=== PATIENT | male | born 1935 | race African-American/Black ===

== ENCOUNTER 2017-04-09 19:20 | Inpatient (IN) ==
[2017-04-09 20:32] LABS: Basophils % 0.2 % (0.0-0.8); Eosinophils # 0.2 10*3/uL (0.0-0.87); Hematocrit 24.8 VOL% (42.0-52.0); Hemoglobin 8.5 GM/DL (14.0-18.0); Immature Granulocytes % 0.4 %; Immature Granulocytes Absolute 0.04 #; Lymphocytes # 1.7 10*3/uL (1.4-4.0); Lymphocytes % 16.7 % (21.2-54.2); Mean Corpuscular HGB Conc 34.3 GM/DL (32-36); Mean Corpuscular Hemoglobin 32 PG (27-34); Mean Corpuscular Volume 92.2 FL (87-102); Mean Platelet Volume 12.4 FL (9.6-12.0); Monocytes # 0.2 10*3/uL (0.11-0.8); Monocytes % 2.2 % (1.7-12.7); Neutrophils % 78.5 % (38.7-73.9); Platelet Count 113 T/CUMM (130-400); Red Blood Count 2.69 MC/CUMM (3.8-5.5); Red Cell Distribution Width 14.5 % (9.3-17.3); White Blood Count 10.2 T/CUMM (4-12)
--- NOTE | 2017-04-09 20:49 | Emergency Department Note ---
Yannick Phillips Hilary, am scribing for, and in the presence of, Christiano Jimenez MD 20:22. Tony Phillips Robert M, MD, personally performed the services described in this documentation, ascribed by Any Lanier in my presence, and it is both accurate and complete . Arrival - Arrival Chief Complaint: Altered Mental Status Stated Complaint: CANT WALK/STAND/UNABLE URINATE/EXTREMITIES [facility] ED Nursing Triage Note: pt presented to triage via w/c with family reporting confusion and weakness and unable to urinate x 2 days. pt alert and oriented to self only. family reports fever x 2 days. Mode of Arrival: Wheelchair Limitations: No Limitations Source: Patient, RN Notes Reviewed - History of Present Illness HPI Narrative: Pt is a 81 y/o male presenting to the ED with c/o confusion and weakness which onset 2 days ago. Pts family report confusion, weakness, trouble standing, " hands and feet jumping" and numbness in his feet but denies fever. Family also reports that he self caths due to a prostate issue and that he hasn't urinated in 2 days. No other complaints or problems stated in the ED. Onset (ago): day(s) Consistency: constant Severity: mild Severity scale (1-10): 1 Allergies/Adverse Reactions: Allergies Allergy/AdvReac Type Severity Reaction Status Date / Time No Known Allergies Allergy Verified 01/02/16 01:06 Home Medications: Home Medications Medication Instructions Recorded Confirmed Type Albuterol Sulfate [Ventolin HFA] 2 puff INH PRN PRN 06/28/15 04/09/17 History Amitriptyline [Elavil] 50 mg PO BEDTIME 06/28/15 04/09/17 History Ascorbic Acid [Vitamin C] 500 mg PO DAILY 06/28/15 04/09/17 History Aspirin EC Tab 81 mg PO DAILY 04/09/17 04/09/17 History Etodolac 400 mg PO BID 04/09/17 04/09/17 History Folic Acid Tab 1 mg PO DAILY 04/09/17 04/09/17 History Furosemide Tab [Lasix Tab] 20 mg PO DAILY 04/09/17 04/09/17 History Gabapentin 400 mg PO BID 04/09/17 04/09/17 History Methocarbamol Tab [Robaxin Tab] 500 mg PO TID 04/09/17 04/09/17 History Methotrexate Tab 15 mg PO MO 04/09/17 04/09/17 History Valsartan/Hydrochlorothiazide 1 each PO DAILY 04/09/17 04/09/17 History [Valsartan-Hctz 160-25 mg Tab] fentaNYL [Fentanyl 50 mcg/hr Patch] 1 patch TRANSDERM Q3DAY 04/09/17 04/09/17 History rOPINIRole [Requip] 0.25 mg PO BEDTIME 04/09/17 04/09/17 History traMADol TAB [Ultram] 50 mg PO TID 04/09/17 04/09/17 History Review of System - Review of System 12 point system: reviewed and no additional remarkable complaints except as stated - Review of System Constitutional: Present: fever, weakness, other (confusion) Genitourinary male: Present: other (trouble urinating) Musculoskeletal: Present: leg pain (numbness in feet/ cant stand) Neurological: Present: weakness, confusion Medical,Surgical,& Family Hx - Medical History Cardio: History of: Hypertension Neurology: History of: Vertigo HEENT: History of: Eye Problem Respiratory: History of: Obstructive Sleep Apnea Genitourinary: History of: Prostate Problems (hx of prostate cancer 2003 with radiation) Musculoskeletal: History of: Back/Neck Problems - Surgical History Cardiac Surgeries: Patient Denies: Cardiac Catheterization Thoracic Surgeries: Patient denies;: Lobectomy HEENT Surgeries: Surgical HX of: Eye Surgery (cataract sx) Orthopedic Surgeries: Surgical HX of;: Implanted Devices (stimulator 06/28/2015) , Total Knee Replacement (right TKR, Left TKR) - Social History Smoking Status: Current every day smoker Frequency of Alcohol Use: Occasionally Type of Drug Use: None Exam Vital Signs: Vital Signs Temperature 99.4 F 04/09/17 21:06 Pulse Rate 102 H 04/09/17 21:06 Respiratory Rate 18 04/09/17 21:06 Blood Pressure 88/47 04/09/17 21:06 O2 Sat by Pulse Oximetry 98 04/09/17 19:37 - General General appearance: alert, in no apparent distress, other (generalized weakness) - Head Head exam: Present: atraumatic, normocephalic - Eye Eye exam: Present: normal appearance, PERRL, EOMI - ENT ENT exam: Present: mucous membranes dry, TM's normal bilaterally. Absent: mucous membranes moist - Neck Neck exam: Present: full ROM, trachea midline. Absent: tenderness - Chest Chest inspection: Present: symmetric chest wall rise. Absent: tenderness - Respiratory Respiratory exam: Present: normal lung sounds bilaterally. Absent: respiratory distress - Cardiovascular Cardiovascular exam: Present: regular rate, normal rhythm, normal heart sounds. Absent: murmur, rubs, gallop - Abdominal Exam Abdominal exam: Present: soft, normal bowel sounds. Absent: distention, tenderness - Extremities Exam Extremities exam: Present: full ROM, other (left leg is altered to proprioception). Absent: tenderness - Back Exam Back exam: Present: full ROM. Absent: tenderness - Neurological Exam Neurological exam: Present: alert, oriented X3, CN II-XII intact. Absent: motor sensory deficit - Psychiatric Psychiatric exam: Present: normal affect, normal mood - Skin Skin exam: Present: warm, dry, intact, normal color. Absent: rash Course - Consultations Time: 22:05 Results - Labs CBC & BMP: 04/09/17 20:02 Lab Results: I have reviewed the patients labs - Diagnostic Findings Procedure: CT: image reviewed by me (No acute intracranial process. Minimal ethmoid sinus disease.)
[2017-04-09 20:55] LABS: Troponin I Only 0.025 NG/ML (0.00-0.045)
[2017-04-09 21:54] LABS: Platelet Estimate Normal
[2017-04-09 22:18] LABS: Calcium 9.5 MG/DL (8.5-10.1); Magnesium 2.3 MG/DL (1.8-2.4); Osmolality,Calculated 289.5 MOS/KG (273-304); Potassium 3.4 MMOL/L (3.5-5.1)
[2017-04-09] MEDS ORDERED: SODIUM CHLORIDE 0.9% 250 ML IV PRN (22:22)
--- NOTE | 2017-04-10 01:20 | Hospitalist History & Physical ---
Assessment and Plan (1) Cellulitis Status: Acute Current Visit: Yes (2) Global weakness Status: Acute Current Visit: Yes (3) Decreased sensation of foot Status: Acute Current Visit: Yes (4) Acute kidney injury Status: Acute Current Visit: Yes (5) Urinary retention Status: Acute Current Visit: Yes (6) Dehydration Status: Acute Current Visit: Yes (7) Anemia Status: Acute Assessment and plan: Our plan for this patient 1. Admit patient our service 2. Monitored bed 3. Transfuse 2 units packed red blood cells 4. Anemia profile 5. Renal ultrasound 6. Urology consult 7. Nephrology consult 8. As Dr. Schmidt to see the patient while he is here secondary to this jerking motions noted in arms and legs Current Visit: Yes History of Present Illness Chief complaint: Cannot urinate and confusion History of present illness: Mr. Mederos is a 81 year old male with past medical history significant for prostate cancer, hypertension, some nerve pain, chronic back pain, chronic kidney disease who presents to our ER tonight. It starts at that patient could not urinate. He had no urge to urinate. Family reports he has not urinated in 2 days. He has been experiencing increased weakness and increased confusion. He has not been able to walk. He had diarrhea and vomiting all day Friday and all day Friday. There was no blood seen in the vomitus or the diarrhea. Patient's been has been having jerking motions in both his hands and legs. He has been seeing Dr. Marvin Kramer for this problem. Patient was brought up to our hospital for further evaluation. Patient was found to be anemic. Patient was found to have increased creatinine. I was consulted to admit him through the emergency room. Home Medications Medication Instructions Recorded Confirmed Type Albuterol Sulfate [Ventolin HFA] 2 puff INH PRN PRN 06/28/15 04/09/17 History Amitriptyline [Elavil] 50 mg PO BEDTIME 06/28/15 04/09/17 History Ascorbic Acid [Vitamin C] 500 mg PO DAILY 06/28/15 04/09/17 History Aspirin EC Tab 81 mg PO DAILY 04/09/17 04/09/17 History Etodolac 400 mg PO BID 04/09/17 04/09/17 History Folic Acid Tab 1 mg PO DAILY 04/09/17 04/09/17 History Furosemide Tab [Lasix Tab] 20 mg PO DAILY 04/09/17 04/09/17 History Gabapentin 400 mg PO BID 04/09/17 04/09/17 History Methocarbamol Tab [Robaxin Tab] 500 mg PO TID 04/09/17 04/09/17 History Methotrexate Tab 15 mg PO MO 04/09/17 04/09/17 History Valsartan/Hydrochlorothiazide 1 each PO DAILY 04/09/17 04/09/17 History [Valsartan-Hctz 160-25 mg Tab] fentaNYL [Fentanyl 50 mcg/hr Patch] 1 patch TRANSDERM Q3DAY 04/09/17 04/09/17 History rOPINIRole [Requip] 0.25 mg PO BEDTIME 04/09/17 04/09/17 History traMADol TAB [Ultram] 50 mg PO TID 04/09/17 04/09/17 History Allergies Allergy/AdvReac Type Severity Reaction Status Date / Time No Known Allergies Allergy Verified 01/02/16 01:06 Medical,Surgical,& Family Hx - Medical History Cardio: History of: Hypertension Neurology: History of: Vertigo HEENT: History of: Eye Problem Respiratory: History of: Obstructive Sleep Apnea Genitourinary: History of: Prostate Problems (hx of prostate cancer 2003 with radiation) Musculoskeletal: History of: Back/Neck Problems - Surgical History Cardiac Surgeries: Patient Denies: Cardiac Catheterization Thoracic Surgeries: Patient denies;: Lobectomy HEENT Surgeries: Surgical HX of: Eye Surgery (cataract sx) Orthopedic Surgeries: Surgical HX of;: Implanted Devices (stimulator 06/28/2015) , Total Knee Replacement (right TKR, Left TKR) - Family History Family History: Reports;: Family Hypertension - Social History Smoking Status: Current every day smoker Frequency of Alcohol Use: Occasionally Type of Drug Use: None 12 point system: reviewed and no additional remarkable complaints except as stated Exam - Constitutional Vitals: Period Temp Pulse Resp BP Sys/Acuña Pulse Ox Last 24 Hr 99.4 F-99.4 F 102-102 18-18 88-88/47-47 98 - General General appearance: alert, in no apparent distress, mild confusion and overall generalized weakness - Head Head exam: Present: atraumatic, normocephalic - Eye Eye exam: Present: normal appearance, PERRL, EOMI - ENT ENT exam: Present: mucous membranes dry, TM's normal bilaterally. - Neck Neck exam: Present: full ROM, trachea midline. - Chest Chest inspection: Present: symmetric chest wall rise. - Respiratory Respiratory exam: Present: normal lung sounds bilaterally. - Cardiovascular Cardiovascular exam: Present: regular rate, normal rhythm, normal heart sounds - Abdominal Exam Abdominal exam: Present: soft, normal bowel sounds. Absent: distention, tenderness - Extremities Exam Extremities exam: Present: Patient has decreased sensation regarding his toes and feet has some area of cellulitis on his left lower leg - Back Exam Back exam: Present: full ROM. Absent: tenderness - Neurological Exam Neurological exam: Present: alert, oriented X3, CN II-XII intact. - Psychiatric Psychiatric exam: Present: normal affect, normal mood - Skin Skin exam: Present: warm, dry, intact, normal color. Absent: rash Results - Labs CBC & BMP: 04/09/17 20:02 04/09/17 20:02
[2017-04-10] MEDS ORDERED: ACETAMINOPHEN 325 MG TABLET PO PRN (01:27)
[2017-04-10] MEDS ORDERED: ONDANSETRON 4 MG/2 ML VIAL IV PRN (01:27)
[2017-04-10] MEDS ORDERED: SODIUM CHLORIDE 0.9% 250 ML IV PRN (01:33)
[2017-04-10 03:45] LABS: Apearance,Urine CLEAR (Clear); Bilirubin,Urine Negative (Negative); Blood, Urine Negative (Negative); Glucose,Urine (UA) Negative (Negative); Granular Casts,Urine 4 /LPF (0-1); Hyaline Casts,Urine 25 /LPF (0-3); Ketones,Urine Negative (Negative); Mucus,Urine Occasional /LPF (Occasional); Nitrite,Urine Negative (Negative); Protein,Urine Negative; Squamous Epithelial Cell,Urine Occasional /HPF (0-10); Urine Color Yellow (Yellow); Urine Urobilinogen < 2.0 EU/DL (0.2-1.0); WBC,Urine <1 /HPF (0-6)
[2017-04-10] MEDS: CEFTAROLINE 300 MG in SODIUM CHLORIDE 0.9% 100 ML IV SCH ×2 (05:15→21:29)
[2017-04-10] MEDS: SODIUM CHLORIDE 0.9% 1,000 ML IV SCH ×2 (05:15→18:14)
[2017-04-10 06:05] LABS: Folate > 24.0 NG/ML (5.4-24.0); Vitamin B12 688 PG/ML (211-911)
--- NOTE | 2017-04-10 06:42 | CT Report ---
History his confusion left leg sensory disturbance Comparison 01/02/2016 There is mild atrophy There are no acute intracranial hemorrhage, mass effect, or evidence of acute cortical stroke is seen Impression: Mild diffuse atrophy The CT exam was performed using one or more of the following dose reduction techniques: Automated exposure control, adjustment of the mA and/or kV according to patient size, or use of iterative reconstruction technique. PROCEDURE INTERPRETED AT [facility] DEPARTMENT OF RADIOLOGY Final Report Signed by: Dr. Dorota Vines
--- NOTE | 2017-04-10 07:49 | XRay Report ---
History is chest pain short of breath Comparison 10/08/2013 The heart is enlarged. Hilar contours unchanged Minimal pleural-based density in the lateral left base unchanged. No congestive failure or confluent infiltrate is seen Impression: Cardiomegaly without CHF PROCEDURE INTERPRETED AT [facility] DEPARTMENT OF RADIOLOGY Final Report Signed by: Dr. Dorota Vines
[2017-04-10] MEDS: ASCORBIC ACID 500 MG TABLET PO SCH (08:45)
[2017-04-10] MEDS: METHOCARBAMOL 500 MG TABLET PO SCH ×3 (08:46→21:29)
[2017-04-10] MEDS: GABAPENTIN 400 MG CAPSULE PO SCH ×2 (08:46→21:29)
[2017-04-10] MEDS: traMADol 50 MG TABLET PO SCH ×3 (08:46→21:29)
[2017-04-10 08:47] LABS: Basophils % 0.3 % (0.0-0.8); Eosinophils # 0.3 10*3/uL (0.0-0.87); Eosinophils % 3.1 % (0.00-10.9); Hematocrit 29.5 VOL% (42.0-52.0); Immature Granulocytes % 0.8 %; Immature Granulocytes Absolute 0.08 #; Lymphocytes # 1.4 10*3/uL (1.4-4.0); Lymphocytes % 13.5 % (21.2-54.2); Mean Corpuscular HGB Conc 35.3 GM/DL (32-36); Mean Corpuscular Hemoglobin 32 PG (27-34); Mean Corpuscular Volume 89.4 FL (87-102); Monocytes # 0.3 10*3/uL (0.11-0.8); Monocytes % 2.4 % (1.7-12.7); Neutrophils # 8.5 10*3/uL (1.4-7.4); Neutrophils % 79.9 % (38.7-73.9); Red Cell Distribution Width 14.5 % (9.3-17.3); White Blood Count 10.6 T/CUMM (4-12)
[2017-04-10] MEDS: PANTOPRAZOLE 40 MG TABLET PO SCH (08:47)
[2017-04-10] MEDS: FOLIC ACID 1 MG TABLET PO SCH (08:47)
[2017-04-10 08:54] LABS: Hemoglobin 10.4 GM/DL (14.0-18.0); Platelet Count 141 T/CUMM (130-400)
[2017-04-10] MEDS ORDERED: ETODOLAC 400 MG TABLET PO SCH (09:00)
--- NOTE | 2017-04-10 09:03 | Ultrasound Report ---
Exam: US renal Bilateral Date:04/10/2017 4:00 AM Comparison: None Indication: Elevated creatinine Right Kidney: Length: 10.5 cm AP: 4.6 cm Width: 5.6 cm Left kidney: Length: 10.8 cm AP: 5.4 cm Width: 5.6 cm Findings: Cortical echogenicity is normal except for a 2.8 cm cyst with very minimal thin septation at the lower pole of the right kidney and a 3.4 cm cyst with some minimal echoes at the upper pole the right kidney. No hydronephrosis seen bilaterally Impression: 2, up to 3.5 cm minimally complicated right renal cysts Ultrasound Images were captured and stored. PROCEDURE INTERPRETED AT [facility] DEPARTMENT OF RADIOLOGY Final Report Signed by: Dr. Dorota Vines
[2017-04-10 09:07] LABS: Eosinophils 9 % (0-10); Hypochromasia 1+; Lymphocytes 13 % (20-55); Platelet Estimate Normal; Segmented Neutrophils 76 % (50-85); Total Cells Counted 100
[2017-04-10 09:13] LABS: Calcium 8.8 MG/DL (8.5-10.1); Osmolality,Calculated 289.4 MOS/KG (273-304); Potassium 3.1 MMOL/L (3.5-5.1)
[2017-04-10] MEDS: fentaNYL 50 MCG/HR PATCH TRANSDERM SCH (10:01)
[2017-04-10 10:05] LABS: Hematocrit 24.8 VOL% (42.0-52.0); Hemoglobin 8.5 GM/DL (14.0-18.0); Mean Corpuscular HGB Conc 34.3 GM/DL (32-36); Mean Corpuscular Hemoglobin 32 PG (27-34); Mean Corpuscular Volume 92.2 FL (87-102); Mean Platelet Volume 12.4 FL (9.6-12.0); Neutrophils % 78.5 % (38.7-73.9); Platelet Count 113 T/CUMM (130-400); Red Blood Count 2.69 MC/CUMM (3.8-5.5); Red Cell Distribution Width 14.5 % (9.3-17.3); White Blood Count 10.2 T/CUMM (4-12)
[2017-04-10 10:06] LABS: Basophils % 0.2 % (0.0-0.8); Eosinophils # 0.2 10*3/uL (0.0-0.87); Immature Granulocytes % 0.4 %; Immature Granulocytes Absolute 0.04 #; Lymphocytes # 1.7 10*3/uL (1.4-4.0); Lymphocytes % 16.7 % (21.2-54.2); Monocytes # 0.2 10*3/uL (0.11-0.8); Monocytes % 2.2 % (1.7-12.7)
[2017-04-10 10:07] LABS: Platelet Estimate Normal
[2017-04-10 10:47] LABS: Hemoglobin A1 (Alkaline) 97.7 % (96.5-98.5); Hemoglobin A2 (Alkaline) 2.3 % (1.5-3.5)
--- NOTE | 2017-04-10 11:16 | Urology Consultation ---
Assessment and Plan (1) Carcinoma of prostate Status: Acute Current Visit: Yes (2) Urinary retention Status: Acute Assessment and plan: We will begin Flomax. I am going to stop his Lodine because of his creatinine. We will leave the Landrum catheter. He just saw Dr. bejarano 2 months ago. As far as I am concerned we can leave the Landrum. The nursing service will call Dr. Arroyo's office to see when he needs to see him. Current Visit: Yes History of Present Illness - Data of Consult Patient: new to practice Consult date: 04/10/17 Requesting Physician: Phuc Rodriguez - Consult Narrative Reason for consult: Urinary retention, carcinoma prostate History of present illness: Mr. Mederos is a 81 year old male who I saw 7 8 years ago. He is a patient Dr. Erick Arroyo. Received external beam radiation for carcinoma prostate. He presents multiple issues and urinary retention. He has a Landrum in. His creatinine is over 4. He is on numerous medicines that can put him in retention. He is on Lodine which is a nonsteroidal anti-inflammatory and I will stop that due to his creatinine. I do not know what his PSA is. He saw Dr. lopez a couple months ago. I recommend we start Flomax and leave the catheter. The nursing service will call over to Dr. Arroyo's office and see when he needs to see him. CC: Carrington Tobar MD - Home Medications and Allergies Home Medications: Home Medications Medication Instructions Recorded Confirmed Type Albuterol Sulfate [Ventolin HFA] 2 puff INH PRN PRN 06/28/15 04/09/17 History Amitriptyline [Elavil] 50 mg PO BEDTIME 06/28/15 04/09/17 History Ascorbic Acid [Vitamin C] 500 mg PO DAILY 06/28/15 04/09/17 History Aspirin EC Tab 81 mg PO DAILY 04/09/17 04/09/17 History Etodolac 400 mg PO BID 04/09/17 04/09/17 History Folic Acid Tab 1 mg PO DAILY 04/09/17 04/09/17 History Furosemide Tab [Lasix Tab] 20 mg PO DAILY 04/09/17 04/09/17 History Gabapentin 400 mg PO BID 04/09/17 04/09/17 History Methocarbamol Tab [Robaxin Tab] 500 mg PO TID 04/09/17 04/09/17 History Methotrexate Tab 15 mg PO MO 04/09/17 04/09/17 History Valsartan/Hydrochlorothiazide 1 each PO DAILY 04/09/17 04/09/17 History [Valsartan-Hctz 160-25 mg Tab] fentaNYL [Fentanyl 50 mcg/hr Patch] 1 patch TRANSDERM Q3DAY 04/09/17 04/09/17 History rOPINIRole [Requip] 0.25 mg PO BEDTIME 04/09/17 04/09/17 History traMADol TAB [Ultram] 50 mg PO TID 04/09/17 04/09/17 History Allergies/Adverse Reactions: Allergies Allergy/AdvReac Type Severity Reaction Status Date / Time No Known Allergies Allergy Verified 01/02/16 01:06 12 point system: reviewed and no additional remarkable complaints except as stated Exam - Constitutional Vitals: Period Temp Pulse Resp BP Sys/Acuña Pulse Ox Last 24 Hr 97.4 F-99.4 F 77-102 16-20 88-128/47-69 96-100 Results - Labs CBC & BMP: 04/10/17 Unknown 04/10/17 08:22
--- NOTE | 2017-04-10 13:19 | Nephrology Consult Note ---
History of Present Illness Chief complaint: ARF History of present illness: Mr. Mederos is a 81 year old male with a remote history of prostate cancer and admission to the hospital on this occasion because of an episode of vomiting and inability to keep food down resulting in volume depletion and an elevated creatinine. His creatinine yesterday was above 4 and today is 3.0 after fluid replacement with normal saline. He had Intra-Op prostatic radiation seed implants to treat prostate cancer. He does intermittent catheterization at home and noticed markedly decreased urine output during the time of his gastrointestinal illness. Interestingly he also has had difficulty walking of late and on review of some previous scans he had abnormality in L2 and 3 vertebral bodies with some discogenic and bony abnormalities that were causing some neuroforaminal compression at that level. A year ago he had a evaluation of his arterial circulation in his legs and and with a noninvasive evaluation it was within normal limits. He has also had nerve conduction testing in the past that demonstrated a polyneuropathy. On exam he is able to give a good history and is alert and oriented in no distress. His chest is clear. His heart without rub or gallop. Abdomen soft nontender. He was able to eat lunch and is keeping his food down. He has no peripheral edema. General he is improved. Impression #1 acute renal failure secondary to volume depletion #2 history of prostate cancer #3 history of bladder dysfunction resulting in the need to do intermittent catheterization #4 recent inability to walk. Plan I would continue with his fluid resuscitation #2 we will check PSA and an alkaline phosphatase and will continue to follow his creatinine Home Medications Medication Instructions Recorded Confirmed Type Albuterol Sulfate [Ventolin HFA] 2 puff INH PRN PRN 06/28/15 04/09/17 History Amitriptyline [Elavil] 50 mg PO BEDTIME 06/28/15 04/09/17 History Ascorbic Acid [Vitamin C] 500 mg PO DAILY 06/28/15 04/09/17 History Aspirin EC Tab 81 mg PO DAILY 04/09/17 04/09/17 History Etodolac 400 mg PO BID 04/09/17 04/09/17 History Folic Acid Tab 1 mg PO DAILY 04/09/17 04/09/17 History Furosemide Tab [Lasix Tab] 20 mg PO DAILY 04/09/17 04/09/17 History Gabapentin 400 mg PO BID 04/09/17 04/09/17 History Methocarbamol Tab [Robaxin Tab] 500 mg PO TID 04/09/17 04/09/17 History Methotrexate Tab 15 mg PO MO 04/09/17 04/09/17 History Valsartan/Hydrochlorothiazide 1 each PO DAILY 04/09/17 04/09/17 History [Valsartan-Hctz 160-25 mg Tab] fentaNYL [Fentanyl 50 mcg/hr Patch] 1 patch TRANSDERM Q3DAY 04/09/17 04/09/17 History rOPINIRole [Requip] 0.25 mg PO BEDTIME 04/09/17 04/09/17 History traMADol TAB [Ultram] 50 mg PO TID 04/09/17 04/09/17 History Allergies Allergy/AdvReac Type Severity Reaction Status Date / Time No Known Allergies Allergy Verified 01/02/16 01:06 Medical,Surgical,& Family Hx - Medical History Cardio: History of: Hypertension Neurology: History of: Vertigo HEENT: History of: Eye Problem Respiratory: History of: Obstructive Sleep Apnea Genitourinary: History of: Prostate Problems (hx of prostate cancer 2003 with radiation), Problems (Urinary retention) Musculoskeletal: History of: Back/Neck Problems - Surgical History Cardiac Surgeries: Patient Denies: Cardiac Catheterization Thoracic Surgeries: Patient denies;: Lobectomy HEENT Surgeries: Surgical HX of: Eye Surgery (cataract sx geni eyes) Orthopedic Surgeries: Surgical HX of;: Implanted Devices (stimulator 06/28/2015) , Total Knee Replacement (right TKR, Left TKR) - Family History Family History: Reports;: Family Hypertension - Social History Smoking Status: Current every day smoker Frequency of Alcohol Use: Occasionally Type of Drug Use: None Review of Systems 12 point system: reviewed and no additional remarkable complaints except as stated Exam - Vital Signs Vital signs: Period Temp Pulse Resp BP Sys/Acuña Pulse Ox Last 24 Hr 97.4 F-99.4 F 77-102 16-20 88-128/47-69 96-100 - General Appearance General appearance: well-developed, well-nourished, appears started age EENT: ATNC Neck: no JVD, no thyromegaly, no carotid bruit, supple Respiratory: no kyphosis, no scoliosis Cardiology: no murmurs, no rub, no gallops, no edema, regular rate, regular rhythm, normal S1, normal S2 Gastrointestinal: normoactive bowel sounds Integumentary: no rash, warm and dry Neurologic: no focal deficit, no asterixis, alert and oriented x3, reflexes 2+ and symmetric, gait normal, strength 5/5 Musculoskeletal: no deformities, no erythema, no cyanosis, no clubbing Psychiatric: mood/affect appropriate (bean catheter in place), cooperative Results - Labs CBC & BMP: 04/10/17 Unknown 04/10/17 08:22 Assessment and Plan - Time spent with patient Time spent with patient: Greater than 30 minutes (1) Acute renal failure (ARF) Status: Acute Assessment and plan: due to volume depletion Current Visit: Yes (2) Carcinoma of prostate Status: Acute Assessment and plan: hx of prostatic seed implants Current Visit: Yes Specialty Discharge - Follow Up or Referrals - Speciality Discharge Instructions Nephrology Instructions: follow creat, continue fluid resuscitation
[2017-04-10] MEDS: TAMSULOSIN 0.4 MG CAPSULE PO SCH (14:18)
--- NOTE | 2017-04-10 14:31 | Hospitalist Progress Note ---
Assessment and Plan (1) Peripheral arterial disease Status: Acute Assessment and plan: Obtain arterial Doppler of both legs and ankle-brachial indices Current Visit: Yes (2) Cellulitis Status: Acute Assessment and plan: Continue antibiotic Current Visit: Yes (3) Global weakness Status: Acute Assessment and plan: Borges has generalized deconditioning but has localized weakness in the leg just think is secondary to poor arterial supply. There could also be a possibility of spinal stenosis Current Visit: Yes Hospitalist: Subjective Interval history: Patient has been seen interviewed and examined and chart has been reviewed patient is complaining of leg and has not been able to weight-bear for at least for the past few weeks. Admitted to the hospital with oliguria able to pass more urine now with a Landrum catheter in place and noticed very poor pulses at posterior tibial and dorsalis pedis on the right and a very weak dorsalis pedis on the left but a good dose posterior tibial. Exam - Constitutional Vitals: Period Temp Pulse Resp BP Sys/Acuña Pulse Ox Last 24 Hr 97.4 F-99.4 F 77-102 16-20 88-128/47-69 96-100 General appearance: normal weight, severe distress - Head Head exam: Present: normocephalic, atraumatic - Eye Pupils: Present: MÓNICA - Respiratory Respiratory exam: Present: clear to auscultation bilaterally - Cardiovascular Cardiovascular exam: Present: regular rate and rhythm - GI/Abdominal GI/Abdominal exam: Present: normal bowel sounds, soft - Extremities Exam Extremities exam: Present: other (Generalized weakness but also very weak on the legs can hardly lift her legs against gravity) - Neurological Exam Neurological exam: Present: alert, oriented X3, CN II-XII intact - Psychiatric Psychiatric exam: Present: normal affect, normal mood - Skin Skin exam: Present: normal color, warm, dry Results - Labs CBC & BMP: 04/10/17 Unknown 04/10/17 08:22 Lab Results: I have reviewed the past 24 hour labs Quality Measures - VTE Contraindication to Pharmacological VTE Prophylaxis: Thrombocytopenia - Stroke Symptom Onset Unknown: No
--- NOTE | 2017-04-10 16:20 | Neurology Consult Note ---
History of Present Illness History of present illness: Mr. Mederos is a 81 year old male with past medical history significant for prostate cancer, hypertension, some nerve pain, chronic back pain, chronic kidney disease who presents to the ER difficulty in urination, generalized weakness, difficulty in walking. Family reports he has not urinated in 2 days. He has been experiencing increased weakness and increased confusion. He has not been able to walk. He had diarrhea and vomiting all day Friday and all day Friday. Patient's was having jerking motions in both his hands and legs. Patient was found to be anemic and have increased creatinine. He seems to be doing much better now and has improved significantly. Head CT reveals mild diffuse atrophic Home Medications Medication Instructions Recorded Confirmed Type Albuterol Sulfate [Ventolin HFA] 2 puff INH PRN PRN 06/28/15 04/09/17 History Amitriptyline [Elavil] 50 mg PO BEDTIME 06/28/15 04/09/17 History Ascorbic Acid [Vitamin C] 500 mg PO DAILY 06/28/15 04/09/17 History Aspirin EC Tab 81 mg PO DAILY 04/09/17 04/09/17 History Etodolac 400 mg PO BID 04/09/17 04/09/17 History Folic Acid Tab 1 mg PO DAILY 04/09/17 04/09/17 History Furosemide Tab [Lasix Tab] 20 mg PO DAILY 04/09/17 04/09/17 History Gabapentin 400 mg PO BID 04/09/17 04/09/17 History Methocarbamol Tab [Robaxin Tab] 500 mg PO TID 04/09/17 04/09/17 History Methotrexate Tab 15 mg PO MO 04/09/17 04/09/17 History Valsartan/Hydrochlorothiazide 1 each PO DAILY 04/09/17 04/09/17 History [Valsartan-Hctz 160-25 mg Tab] fentaNYL [Fentanyl 50 mcg/hr Patch] 1 patch TRANSDERM Q3DAY 04/09/17 04/09/17 History rOPINIRole [Requip] 0.25 mg PO BEDTIME 04/09/17 04/09/17 History traMADol TAB [Ultram] 50 mg PO TID 04/09/17 04/09/17 History Allergies Allergy/AdvReac Type Severity Reaction Status Date / Time No Known Allergies Allergy Verified 01/02/16 01:06 12 point system: reviewed and no additional remarkable complaints except as stated Medical,Surgical,& Family Hx - Medical History Cardio: History of: Hypertension Neurology: History of: Vertigo HEENT: History of: Eye Problem Respiratory: History of: Obstructive Sleep Apnea Genitourinary: History of: Prostate Problems (hx of prostate cancer 2004 with radiation), Problems (Urinary retention) Musculoskeletal: History of: Back/Neck Problems - Surgical History Cardiac Surgeries: Patient Denies: Cardiac Catheterization Thoracic Surgeries: Patient denies;: Lobectomy HEENT Surgeries: Surgical HX of: Eye Surgery (cataract sx geni eyes) Orthopedic Surgeries: Surgical HX of;: Implanted Devices (stimulator 06/28/2015) , Total Knee Replacement (right TKR, Left TKR) - Family History Family History: Reports;: Family Hypertension - Social History Smoking Status: Current every day smoker Frequency of Alcohol Use: Occasionally Type of Drug Use: None Exam - Constitutional Vitals: Period Temp Pulse Resp BP Sys/Acuña Pulse Ox Last 24 Hr 97.4 F-99.4 F 77-102 16-20 88-128/47-69 96-100 Exam: GENERAL: Patient is in no acute distress. NECK: Neck is supple. There is no JVD. No carotid bruits present. No thyroid masses. CVS: First and second heart sounds are normal. There is no S3 present. Regular rate and rhythm. RESPIRATORY: Lungs are clear to auscultation without any rales or rhonchi. ABDOMEN: Soft and non-tender. Bowel sounds are present. There is no hepatosplenomegaly. EXT: There is no palpable edema. Peripheral pulses are present. Skin: No rashes Central Nervous system: General: Alert, awake and Oriented x 3 Speech: Fluent Comprehension: Intact and normal Facial expressions: Normal Cranial Nerves: CN1/Olfactory: Normal CN II/ Optic: Normal, Visual Lares unreliable CN III, and : MÓNICA & EOMI CN V: Normal & intact CN VII: face is symmetric CNVIII: Normal CN XI/X/XI/XII: Intact and Normal Motor: Bulk and Tone is normal. Strength in the right 3-4/5 Strength in the left 3-4/5 Sensory: Decreased for all the modalities of PP, LT and temp sense Reflexes: 1+ and symmetrical Cerebellar function: Slow finger to nose and heel to stokes testing. Toes: Equivocal Gait: Not tested at this time Results - Labs CBC & BMP: 04/10/17 Unknown 04/10/17 08:22 Assessment and Plan (1) Metabolic encephalopathy Status: Acute Assessment and plan: No evidence of a stroke, TIAs, epilepsy or seizures. Patient's mental status has improved significantly. Continue supportive management. No new recommendations from neuro standpoint Sign off please call as needed Current Visit: Yes Specialty Discharge - Follow Up or Referrals Follow up with: Erick Arroyo MD [Physician] -
[2017-04-10] MEDS: rOPINIRole 0.25 MG TABLET PO SCH (21:29)
[2017-04-10] MEDS: AMITRIPTYLINE 50 MG TABLET PO SCH (21:29)
[2017-04-11 07:06] LABS: Calcium 8.8 MG/DL (8.5-10.1); Osmolality,Calculated 288.1 MOS/KG (273-304); Potassium 3.4 MMOL/L (3.5-5.1)
--- NOTE | 2017-04-11 09:45 | Nephrology Progress Note ---
Nephrology - PN: Subj Interval history: Mr. Mederos is seen in follow-up of his acute renal failure. He is much improved with his creatinine now down to 1.6 a creatinine improved from his admission value of 4.3 with the administration of IV fluids. His chest is clear and heart without rub or gallop he has no peripheral edema. In view of his recovered acute renal failure I will sign off for now. Please reconsult if needed thank you Exam (PN)-Nephrology - Vital Signs Vital signs: Period Temp Pulse Resp BP Sys/Acuña Pulse Ox Last 24 Hr 98 F-98.7 F 80-89 16-20 103-125/57-72 96-100 - Lab 04/10/17 Unknown 04/11/17 04:20 Most recent lab results Calcium 8.8 MG/DL (8.5-10.1) 04/11/17 04:20 Magnesium 2.3 MG/DL (1.8-2.4) 04/09/17 20:02 Assessment and Plan (1) Acute renal failure (ARF) Status: Acute Assessment and plan: due to volume depletion Current Visit: Yes (2) Carcinoma of prostate Status: Acute Assessment and plan: hx of prostatic seed implants Current Visit: Yes Specialty Discharge - Follow Up or Referrals Follow up with: Erick Arroyo MD [Physician] -
[2017-04-11] MEDS: GABAPENTIN 400 MG CAPSULE PO SCH ×2 (09:54→21:13)
[2017-04-11] MEDS: TAMSULOSIN 0.4 MG CAPSULE PO SCH (09:54)
[2017-04-11] MEDS: METHOCARBAMOL 500 MG TABLET PO SCH ×3 (09:54→21:12)
[2017-04-11] MEDS: FOLIC ACID 1 MG TABLET PO SCH (09:54)
[2017-04-11] MEDS: traMADol 50 MG TABLET PO SCH ×3 (09:54→21:12)
[2017-04-11] MEDS: ASCORBIC ACID 500 MG TABLET PO SCH (09:54)
[2017-04-11] MEDS: PANTOPRAZOLE 40 MG TABLET PO SCH (09:55)
[2017-04-11] MEDS: CEFTAROLINE 300 MG in SODIUM CHLORIDE 0.9% 100 ML IV SCH ×2 (09:58→21:13)
--- NOTE | 2017-04-11 13:36 | Hospitalist Progress Note ---
Assessment and Plan (1) Peripheral arterial disease Status: Acute Assessment and plan: Obtain arterial Doppler of both legs and ankle-brachial indices Current Visit: Yes (2) Cellulitis Status: Acute Assessment and plan: Continue antibiotic Current Visit: Yes (3) Global weakness Status: Acute Assessment and plan: Borges has generalized deconditioning but has localized weakness in the leg just think is secondary to poor arterial supply. There could also be a possibility of spinal stenosis Current Visit: Yes Hospitalist: Subjective Interval history: Patient has been seen interviewed and examined and chart has been reviewed. Patient still complaining of weakness in the legs. Believe he could do some physical therapy and occupational therapy. Reports on the arterial Doppler of the legs and ankle-brachial indices is pending Exam - Constitutional Vitals: Period Temp Pulse Resp BP Sys/Acuña Pulse Ox Last 24 Hr 98.0 F-98.7 F 80-89 18-20 110-125/67-80 96-100 General appearance: no acute distress - Head Head exam: Present: normocephalic, atraumatic - Eye Eye exam: Present: EOMI Pupils: Present: MÓNICA - Respiratory Respiratory exam: Present: clear to auscultation bilaterally - Cardiovascular Cardiovascular exam: Present: regular rate and rhythm - GI/Abdominal GI/Abdominal exam: Present: normal bowel sounds, soft - Extremities Exam Extremities exam: Present: other (Leg weakness or edema) - Neurological Exam Neurological exam: Present: alert, oriented X3, CN II-XII intact - Psychiatric Psychiatric exam: Present: normal affect, normal mood - Skin Skin exam: Present: normal color, warm, dry Results - Labs CBC & BMP: 04/10/17 Unknown 04/11/17 04:20 Lab Results: I have reviewed the past 24 hour labs (Noted hypokalemia to be supplemented creatinine is still high at 1.6) Quality Measures - VTE Contraindication to Pharmacological VTE Prophylaxis: Thrombocytopenia - Stroke Symptom Onset Unknown: No Specialty Discharge - Follow Up or Referrals Follow up with: Erick Arroyo MD [Physician] -
[2017-04-11] MEDS: AMITRIPTYLINE 50 MG TABLET PO SCH (21:12)
[2017-04-11] MEDS: rOPINIRole 0.25 MG TABLET PO SCH (21:13)
[2017-04-11 23:07] LABS: Basophils % 0.3 % (0.0-0.8); Eosinophils # 0.1 10*3/uL (0.0-0.87); Eosinophils % 1.3 % (0.00-10.9); Hematocrit 26.3 VOL% (42.0-52.0); Hemoglobin 9.4 GM/DL (14.0-18.0); Immature Granulocytes % 0.6 %; Immature Granulocytes Absolute 0.07 #; Lymphocytes # 1.4 10*3/uL (1.4-4.0); Lymphocytes % 13.2 % (21.2-54.2); Mean Corpuscular HGB Conc 35.7 GM/DL (32-36); Mean Corpuscular Hemoglobin 32 PG (27-34); Mean Corpuscular Volume 88.3 FL (87-102); Mean Platelet Volume 11.5 FL (9.6-12.0); Monocytes # 0.4 10*3/uL (0.11-0.8); Neutrophils # 8.8 10*3/uL (1.4-7.4); Neutrophils % 80.6 % (38.7-73.9); Platelet Count 131 T/CUMM (130-400); Red Blood Count 2.98 MC/CUMM (3.8-5.5); White Blood Count 10.9 T/CUMM (4-12)
[2017-04-12] MEDS: FOLIC ACID 1 MG TABLET PO SCH (09:17)
[2017-04-12] MEDS: PANTOPRAZOLE 40 MG TABLET PO SCH (09:17)
[2017-04-12] MEDS: METHOCARBAMOL 500 MG TABLET PO SCH ×3 (09:17→20:58)
[2017-04-12] MEDS: GABAPENTIN 400 MG CAPSULE PO SCH ×2 (09:17→20:59)
[2017-04-12] MEDS: traMADol 50 MG TABLET PO SCH ×3 (09:17→20:58)
[2017-04-12] MEDS: ASCORBIC ACID 500 MG TABLET PO SCH (09:17)
[2017-04-12] MEDS: TAMSULOSIN 0.4 MG CAPSULE PO SCH (09:17)
[2017-04-12] MEDS: CEFTAROLINE 300 MG in SODIUM CHLORIDE 0.9% 100 ML IV SCH (09:20)
--- NOTE | 2017-04-12 10:56 | Hospitalist Progress Note ---
Assessment and Plan (1) Peripheral arterial disease Status: Acute Assessment and plan: Arterial Doppler and ankle-brachial indices show no occlusive disease but presence of some arterial sclerosis Current Visit: Yes (2) Cellulitis Status: Acute Assessment and plan: De-escalate antibiotics to oral doxycycline 100 mg twice a day Current Visit: Yes (3) Global weakness Status: Acute Assessment and plan: Borges has generalized deconditioning but has localized weakness in the leg just think is secondary to poor arterial supply. There could also be a possibility of spinal stenosis Current Visit: Yes Hospitalist: Subjective Interval history: Patient is seen interviewed and examined and chart has been reviewed. She is much more awake and much more animated today still with leg weakness and ataxia. Need physical therapy and occupational therapy to work with her. Me referring her to case management and social sciences professor this as physical therapy and outpatient therapy for consideration of rehab admission. This gentleman does have a stimulator in his back. The neurologist has seen him 1 day he is noted that there is no other recommendations at this point. We will therefore see how he does with physical therapy Exam - Constitutional Vitals: Period Temp Pulse Resp BP Sys/Acuña Pulse Ox Last 24 Hr 97.8 F-98.6 F 77-95 16-20 115-151/56-80 92-96 General appearance: no acute distress - Head Head exam: Present: normocephalic, atraumatic - Eye Eye exam: Present: EOMI Pupils: Present: MÓNICA - Respiratory Respiratory exam: Present: clear to auscultation bilaterally - Cardiovascular Cardiovascular exam: Present: regular rate and rhythm - GI/Abdominal GI/Abdominal exam: Present: normal bowel sounds, soft - Extremities Exam Extremities exam: Present: other (Generalized weakness were unable to lift legs against gravity for long. Is more movement in the legs at this time then the last 3 days however.) - Neurological Exam Neurological exam: Present: alert, oriented X3, CN II-XII intact - Psychiatric Psychiatric exam: Present: normal affect, normal mood - Skin Skin exam: Present: normal color, warm, dry Results - Labs CBC & BMP: 04/11/17 22:56 04/11/17 04:20 Lab Results: I have reviewed the past 24 hour labs Quality Measures - VTE Contraindication to Pharmacological VTE Prophylaxis: Thrombocytopenia - Stroke Symptom Onset Unknown: No Specialty Discharge - Follow Up or Referrals Follow up with: Erick Arroyo MD [Physician] -
[2017-04-12] MEDS: rOPINIRole 0.25 MG TABLET PO SCH (20:58)
[2017-04-12] MEDS: DOXYCYCLINE HYCLATE 100 MG CAPSULE PO SCH (20:58)
[2017-04-12] MEDS: AMITRIPTYLINE 50 MG TABLET PO SCH (20:59)
--- NOTE | 2017-04-13 10:58 | Hospitalist Progress Note ---
Assessment and Plan (1) Peripheral arterial disease Status: Acute Assessment and plan: Arterial Doppler and ankle-brachial indices show no occlusive disease but presence of some arterial sclerosis Current Visit: Yes (2) Cellulitis Status: Acute Assessment and plan: De-escalated antibiotics to oral doxycycline 100 mg twice a day. Will use this for the next 4 days Current Visit: Yes (3) Global weakness Status: Acute Assessment and plan: Borges has generalized deconditioning but has localized weakness in the leg just think is secondary to poor arterial supply. There could also be a possibility of spinal stenosis Current Visit: Yes Hospitalist: Subjective Interval history: Patient has been seen interviewed and examined and chart has been reviewed no new complaints today. Patient seen in chair. PT OT is on going. Been reviewed for rehab I believe as soon as tomorrow she will go to rehab unit. I am informed [facility] is what is being considered at this point. Exam - Constitutional Vitals: Period Temp Pulse Resp BP Sys/Acuña Pulse Ox Last 24 Hr 97.2 F-98.2 F 60-92 16-22 113-133/60-73 92-97 General appearance: over weight - Head Head exam: Present: normocephalic, atraumatic - Eye Eye exam: Present: EOMI Pupils: Present: MÓNICA - ENT ENT exam: Present: normal oropharynx - Neck Neck exam: Present: normal inspection - Respiratory Respiratory exam: Present: clear to auscultation bilaterally - Cardiovascular Cardiovascular exam: Present: regular rate and rhythm - GI/Abdominal GI/Abdominal exam: Present: normal bowel sounds, soft - Extremities Exam Extremities exam: Present: other (Bilateral leg with difficulty weightbearing) - Neurological Exam Neurological exam: Present: alert, oriented X3, CN II-XII intact - Psychiatric Psychiatric exam: Present: normal affect, normal mood - Skin Skin exam: Present: normal color, warm, dry Results - Labs CBC & BMP: 04/11/17 22:56 04/11/17 04:20 Lab Results: I have reviewed the past 24 hour labs Quality Measures - VTE Contraindication to Pharmacological VTE Prophylaxis: Thrombocytopenia - Stroke Symptom Onset Unknown: No Specialty Discharge - Follow Up or Referrals Follow up with: Erick Arroyo MD [Physician] -
[2017-04-13] MEDS: DOXYCYCLINE HYCLATE 100 MG CAPSULE PO SCH ×2 (10:59→21:26)
[2017-04-13] MEDS: METHOCARBAMOL 500 MG TABLET PO SCH ×3 (10:59→21:27)
[2017-04-13] MEDS: PANTOPRAZOLE 40 MG TABLET PO SCH (10:59)
[2017-04-13] MEDS: TAMSULOSIN 0.4 MG CAPSULE PO SCH (10:59)
[2017-04-13] MEDS: GABAPENTIN 400 MG CAPSULE PO SCH ×2 (10:59→21:26)
[2017-04-13] MEDS: FOLIC ACID 1 MG TABLET PO SCH (10:59)
[2017-04-13] MEDS: ASCORBIC ACID 500 MG TABLET PO SCH (10:59)
[2017-04-13] MEDS: traMADol 50 MG TABLET PO SCH ×3 (11:00→21:26)
[2017-04-13] MEDS: fentaNYL 50 MCG/HR PATCH TRANSDERM SCH (11:02)
[2017-04-13] MEDS: AMITRIPTYLINE 50 MG TABLET PO SCH (21:26)
[2017-04-13] MEDS: rOPINIRole 0.25 MG TABLET PO SCH (21:26)
[2017-04-14 06:58] LABS: Calcium 8.6 MG/DL (8.5-10.1); Magnesium 1.5 MG/DL (1.8-2.4); Osmolality,Calculated 279.3 MOS/KG (273-304); Potassium 3.6 MMOL/L (3.5-5.1)
[2017-04-14] MEDS: DOXYCYCLINE HYCLATE 100 MG CAPSULE PO SCH (08:30)
[2017-04-14] MEDS: traMADol 50 MG TABLET PO SCH (08:30)
[2017-04-14] MEDS: ASCORBIC ACID 500 MG TABLET PO SCH (08:30)
[2017-04-14] MEDS: TAMSULOSIN 0.4 MG CAPSULE PO SCH (08:30)
[2017-04-14] MEDS: PANTOPRAZOLE 40 MG TABLET PO SCH (08:30)
[2017-04-14] MEDS: FOLIC ACID 1 MG TABLET PO SCH (08:30)
[2017-04-14] MEDS: METHOCARBAMOL 500 MG TABLET PO SCH (08:30)
[2017-04-14] MEDS: GABAPENTIN 400 MG CAPSULE PO SCH (08:31)
[2017-04-14] MEDS ORDERED: METHOTREXATE 2.5 MG TABLET PO SCH (09:00)
--- NOTE | 2017-04-14 10:14 | Discharge Summary ---
Diagnosis - Discharge Diagnosis (1) Peripheral arterial disease Status: Acute (2) Cellulitis Status: Acute (3) Global weakness Status: Acute Specialty Discharge - Follow Up or Referrals Follow up with: Erick Arroyo MD [Physician] - Discharge Plan - Discharge Data Disposition: Home Health Service Condition at Discharge: Stable Discharge Diet: heart healthy Activity: increase activity as tolerated Weight Bearing at Discharge: weight bear as tolerated Driving: not until seen by doctor Contact your physician if you experience:: fever over 101, Difficulty voiding, Shortness of breath, pain uncontrolled by pain medications - Discharge Medications Continue fentaNYL [Fentanyl 50 mcg/hr Patch] 1 patch TRANSDERM Q3DAY Gabapentin 400 mg PO BID Furosemide Tab [Lasix Tab] 20 mg PO DAILY Folic Acid Tab 1 mg PO DAILY Valsartan/Hydrochlorothiazide [Valsartan-Hctz 160-25 mg Tab] 1 each PO DAILY Methocarbamol Tab [Robaxin Tab] 500 mg PO TID rOPINIRole [Requip] 0.25 mg PO BEDTIME Methotrexate Tab 15 mg PO MO Aspirin EC Tab 81 mg PO DAILY traMADol TAB [Ultram] 50 mg PO TID Etodolac 400 mg PO BID Albuterol Sulfate [Ventolin HFA] 2 puff INH PRN PRN PRN Reason: Shortness Of Breath/Wheezing Ascorbic Acid [Vitamin C] 500 mg PO DAILY Amitriptyline [Elavil] 50 mg PO BEDTIME - Follow Up or Referral Follow Up: Erick Arroyo MD [Physician] - - Forms/Instructions Exam - Constitutional Vitals: Period Temp Pulse Resp BP Sys/Acuña Pulse Ox Last 24 Hr 97.1 F-98.2 F 75-99 16-22 94-131/51-75 95-97 General appearance: over weight - Head Head exam: Present: normocephalic, atraumatic - Eye Eye exam: Present: EOMI Pupils: Present: normal accommodation - ENT ENT exam: Present: normal oropharynx - Neck Neck exam: Present: other (Supple neck no JVD no bruit) - Respiratory Respiratory exam: Present: clear to auscultation bilaterally - Cardiovascular Cardiovascular exam: Present: regular rate and rhythm - GI/Abdominal GI/Abdominal exam: Present: normal bowel sounds, soft - Extremities Exam Extremities exam: Present: other (Leg weakness can move some. His problems weight bearing. Patient needs physical therapy and Occupational Therapy was to have it at home through home health that he had been using at home.) - Back Exam Back exam: Present: other (Mid back discomfort on palpation I do not feel any masses. There is no dissymmetry. Patient has a stimulator in the back) - Neurological Exam Neurological exam: Present: alert, oriented X3, CN II-XII intact - Psychiatric Psychiatric exam: Present: normal affect, normal mood - Skin Skin exam: Present: normal color, warm, dry Discharge Results Procedures and tests throughout hospitalization: Pending Orders 04/09/17 20:02 Blood Culture Stat Labs on day of discharge: Labs from last 24 hours 04/14/17 06:14 Sodium 141 Potassium 3.6 Chloride 108 H Carbon Dioxide 27 Anion Gap 9.6 BUN 13 Creatinine 1.00 GFR Calculation 106 BUN/Creatinine Ratio 13.00 Glucose 87 Calculated Osmolality 279.3 Calcium 8.6 Magnesium 1.5 L Preliminary micro results at discharge 04/09/17 20:02 Blood Culture - Preliminary Blood No growth at 3 days 04/09/17 20:46 Blood Culture - Preliminary Blood No growth at 3 days DS: Provider Date of admission: 04/10/17 01:27 Primary care physician: . No PCP Attending physician on admission: Phuc Rodriguez MD Consults: 04/10/17 01:27 Consult to Physician [CONS] Routine Comment: Numbness and jerking motions Consulting Provider: Mejia Schmidt Consult to Physician [CONS] Routine Comment: increased creatinine Consulting Provider: Chong Huitron Jr. When should Consulting Provider be notified: In am Consult to Physician [CONS] Routine Comment: urinary retention Consulting Provider: Jason Narayanan Consult to Specialist Group: Urology When should Consulting Provider be notified: In am Person Notified: SADIA Date Notified: 04/10/17 Time Notified: 08:16 04/11/17 11:00 Consult to Case Mgmt/Social Srvs [CONS] Routine Reason for Case Mgmt/Social Srvs: Swingbed/SNF/Group Home Consult to Occupational Therapy [CONS] Routine Reason for Occupational Therapy: Evaluate and Treat Consult to Physical Therapy [CONS] Routine Reason for Physical Therapy: Evaluate and Treat Discharging clinician: Carrington Tobar MD
[2017-04-14 13:20] VITALS: BP 105/70
== END 2017-04-14 13:22 | disposition home or self-care (01) | DRG 682 ==
LOC: N.ED 19:20 → N.EDINP 04-10 01:27 → SUATTDRO 04-10 01:27 → N.2E 04-10 02:13
PROVIDERS: ADMIT Internal Medicine; ATTEND Internal Medicine Infectious Disease

== ENCOUNTER 2018-05-29 17:59 | Inpatient (IN) ==
[2018-05-29] MEDS ORDERED: IBUPROFEN 800 MG TABLET PO STA (18:06)
[2018-05-29 18:39] LABS: Basophils % 0.3 % (0.0-0.8); Eosinophils % 0.3 % (0.00-10.9); Hematocrit 35.1 VOL% (42.0-52.0); Hemoglobin 11.8 GM/DL (14.0-18.0); Immature Granulocytes % 0.8 %; Immature Granulocytes Absolute 0.08 #; Lymphocytes # 0.4 10*3/uL (1.4-4.0); Lymphocytes % 3.8 % (21.2-54.2); Mean Corpuscular HGB Conc 33.6 GM/DL (32-36); Mean Corpuscular Hemoglobin 31 PG (27-34); Mean Corpuscular Volume 91.6 FL (87-102); Mean Platelet Volume 13.1 FL (9.6-12.0); Monocytes # 0.1 10*3/uL (0.11-0.8); Monocytes % 0.7 % (1.7-12.7); NRBC # 0.07 10*3/uL; Neutrophils # 9.2 10*3/uL (1.4-7.4); Neutrophils % 94.1 % (38.7-73.9); Platelet Count 142 T/CUMM (130-400); Red Blood Count 3.83 MC/CUMM (3.8-5.5); Red Cell Distribution Width 15.2 % (9.3-17.3); White Blood Count 9.7 T/CUMM (4-12)
[2018-05-29 19:05] LABS: Alanine Aminotransferase 22 U/L (16-61); Albumin 3.6 G/DL (3.4-5.0); Alkaline Phosphatase 88 U/L (45-117); Aspartate Amino Transferase 16 U/L (0-37); Blood Urea Nitrogen 23 MG/DL (7-18); Calcium 9.3 MG/DL (8.5-10.1); Glucose 121 MG/DL (74-106); Osmolality,Calculated 285.3 MOS/KG (273-304); Potassium 3.9 MMOL/L (3.5-5.1); Sodium 141 MMOL/L (136-145)
[2018-05-29 19:08] LABS: Lactic Acid 2.7 MMOL/L (0.4-2.0)
[2018-05-29 19:35] LABS: Troponin I 0.036 NG/ML (0.00-0.045)
[2018-05-29] MEDS ORDERED: LEVOFLOXACIN INJ 750 MG in PREMIX 1 EACH IV STA (19:49)
[2018-05-29] MEDS ORDERED: SODIUM CHLORIDE 0.9% 1,000 ML IV STA (19:49)
[2018-05-29 20:21] LABS: Eosinophils 1 % (0-10); Lymphocytes 7 % (20-55); Segmented Neutrophils 92 % (50-85); Total Cells Counted 100
[2018-05-29 20:23] LABS: Platelet Estimate Adequate; Polychromasia Few
[2018-05-29 20:27] LABS: Amorphous Crystals,Urine Few /HPF (Few); Apearance,Urine CLOUDY (Clear); Bacteria,Urine Many /HPF (Few); Bilirubin,Urine Negative (Negative); Blood, Urine Negative (Negative); Glucose,Urine (UA) Negative (Negative); Granular Casts,Urine 179 /LPF (0-1); Ketones,Urine 5 mg/dL (Negative); Mucus,Urine Many /LPF (Occasional); Nitrite,Urine Negative (Negative); Protein,Urine 100 MG/DL; Squamous Epithelial Cell,Urine Occasional /HPF (0-10); Urine Color Yellow (Yellow); Urine Specific Gravity 1.017 (1.001-1.035); WBC,Urine 363 /HPF (0-6)
[2018-05-29] MEDS ORDERED: MORPHINE 4 MG/1 ML VIAL IV PRN (23:46)
[2018-05-29] MEDS ORDERED: ALBUTEROL 2.5 MG/3 ML NEB RESP TX PRN (23:46)
[2018-05-29] MEDS ORDERED: ONDANSETRON 4 MG/2 ML VIAL IV PRN (23:46)
[2018-05-30] MEDS ORDERED: fentaNYL 50 MCG/HR PATCH TRANSDERM PRN (06:22)
[2018-05-30] MEDS: SODIUM CHLORIDE 0.9% 1,000 ML IV SCH ×5 (06:23→17:50)
[2018-05-30] MEDS: MEROPENEM 1,000 MG in SODIUM CHLORIDE 0.9% 100 ML IV SCH ×3 (06:24→17:50)
[2018-05-30 06:52] LABS: Calcium 9.2 MG/DL (8.5-10.1); Osmolality,Calculated 279.7 MOS/KG (273-304); Potassium 4.8 MMOL/L (3.5-5.1)
[2018-05-30 07:43] LABS: Basophils % 0.2 % (0.0-0.8); Eosinophils % 0.3 % (0.00-10.9); Hemoglobin 10.3 GM/DL (14.0-18.0); Immature Granulocytes % 1.6 %; Lymphocytes # 0.6 10*3/uL (1.4-4.0); Lymphocytes % 4.7 % (21.2-54.2); Mean Corpuscular HGB Conc 33.2 GM/DL (32-36); Mean Corpuscular Hemoglobin 31 PG (27-34); Mean Corpuscular Volume 92.5 FL (87-102); Monocytes # 0.7 10*3/uL (0.11-0.8); Monocytes % 5.5 % (1.7-12.7); Neutrophils # 10.9 10*3/uL (1.4-7.4); Neutrophils % 87.7 % (38.7-73.9); Platelet Count 124 T/CUMM (130-400); Red Blood Count 3.35 MC/CUMM (3.8-5.5); Red Cell Distribution Width 15.2 % (9.3-17.3); White Blood Count 12.4 T/CUMM (4-12)
[2018-05-30 08:22] LABS: Eosinophils 1 % (0-10); Hypochromasia 1+; Lymphocytes 6 % (20-55); Polychromasia Slight; Segmented Neutrophils 87 % (50-85); Total Cells Counted 100
[2018-05-30 08:23] LABS: Microcytosis Slight; Ovalocytes Slight; Platelet Estimate Adequate
[2018-05-30] MEDS: GABAPENTIN 600 MG TABLET PO SCH ×2 (09:38→20:22)
[2018-05-30] MEDS: ASCORBIC ACID 500 MG TABLET PO SCH (09:39)
[2018-05-30] MEDS: PANTOPRAZOLE 40 MG TABLET PO SCH (09:39)
[2018-05-30] MEDS: METHOCARBAMOL 500 MG TABLET PO SCH ×3 (09:39→20:22)
[2018-05-30] MEDS: ASPIRIN EC 81 MG TABLET PO SCH (09:40)
[2018-05-30] MEDS: FOLIC ACID 1 MG TABLET PO SCH (09:40)
[2018-05-30] MEDS: AMITRIPTYLINE 50 MG TABLET PO SCH (20:22)
[2018-05-30] MEDS: rOPINIRole 0.25 MG TABLET PO SCH (20:22)
[2018-05-31] MEDS: MEROPENEM 1,000 MG in SODIUM CHLORIDE 0.9% 100 ML IV SCH ×3 (00:05→15:30)
[2018-05-31] MEDS: SODIUM CHLORIDE 0.9% 1,000 ML IV SCH ×3 (04:27→21:06)
[2018-05-31 04:56] LABS: Basophils % 0.3 % (0.0-0.8); Eosinophils % 0.3 % (0.00-10.9); Hematocrit 27.7 VOL% (42.0-52.0); Hemoglobin 9.3 GM/DL (14.0-18.0); Immature Granulocytes % 1.1 %; Immature Granulocytes Absolute 0.14 #; Lymphocytes # 1.3 10*3/uL (1.4-4.0); Mean Corpuscular HGB Conc 33.6 GM/DL (32-36); Mean Corpuscular Hemoglobin 31 PG (27-34); Mean Corpuscular Volume 91.7 FL (87-102); Mean Platelet Volume 13.1 FL (9.6-12.0); Monocytes % 7.3 % (1.7-12.7); NRBC # 0.02 10*3/uL; Neutrophils # 10.5 10*3/uL (1.4-7.4); Platelet Count 110 T/CUMM (130-400); Red Blood Count 3.02 MC/CUMM (3.8-5.5)
[2018-05-31 05:31] LABS: Calcium 8.7 MG/DL (8.5-10.1); Potassium 3.9 MMOL/L (3.5-5.1)
[2018-05-31 06:30] LABS: Band Neutrophils 1 % (0-10); Hypochromasia Slight; Lymphocytes 10 % (20-55); Platelet Estimate Decreased; Segmented Neutrophils 84 % (50-85); Total Cells Counted 100
[2018-05-31] MEDS: METHOCARBAMOL 500 MG TABLET PO SCH ×3 (09:02→21:06)
[2018-05-31] MEDS: ASCORBIC ACID 500 MG TABLET PO SCH (09:02)
[2018-05-31] MEDS: ASPIRIN EC 81 MG TABLET PO SCH (09:03)
[2018-05-31] MEDS: GABAPENTIN 600 MG TABLET PO SCH ×2 (09:03→21:06)
[2018-05-31] MEDS: PANTOPRAZOLE 40 MG TABLET PO SCH (09:03)
[2018-05-31] MEDS: FOLIC ACID 1 MG TABLET PO SCH (09:03)
[2018-05-31] MEDS: ENOXAPARIN 30 MG/0.3 ML SYRINGE SUBCUT SCH (09:05)
[2018-05-31] MEDS: rOPINIRole 0.25 MG TABLET PO SCH (21:06)
[2018-05-31] MEDS: AMITRIPTYLINE 50 MG TABLET PO SCH (21:06)
[2018-06-01] MEDS: MEROPENEM 1,000 MG in SODIUM CHLORIDE 0.9% 100 ML IV SCH ×3 (01:04→15:59)
[2018-06-01 05:59] LABS: Basophils % 0.4 % (0.0-0.8); Eosinophils # 0.1 10*3/uL (0.0-0.87); Eosinophils % 0.6 % (0.00-10.9); Hematocrit 28.2 VOL% (42.0-52.0); Hemoglobin 9.3 GM/DL (14.0-18.0); Immature Granulocytes % 0.7 %; Immature Granulocytes Absolute 0.08 #; Lymphocytes # 1.3 10*3/uL (1.4-4.0); Lymphocytes % 11.4 % (21.2-54.2); Mean Corpuscular Hemoglobin 31 PG (27-34); Mean Corpuscular Volume 93.4 FL (87-102); Mean Platelet Volume 13.4 FL (9.6-12.0); Monocytes # 0.7 10*3/uL (0.11-0.8); Monocytes % 5.7 % (1.7-12.7); Neutrophils # 9.2 10*3/uL (1.4-7.4); Neutrophils % 81.2 % (38.7-73.9); Platelet Count 110 T/CUMM (130-400); Red Blood Count 3.02 MC/CUMM (3.8-5.5); Red Cell Distribution Width 14.9 % (9.3-17.3); White Blood Count 11.4 T/CUMM (4-12)
[2018-06-01 06:20] LABS: Calcium 8.9 MG/DL (8.5-10.1); Potassium 3.9 MMOL/L (3.5-5.1)
[2018-06-01] MEDS: ENOXAPARIN 30 MG/0.3 ML SYRINGE SUBCUT SCH (08:05)
[2018-06-01] MEDS: ASPIRIN EC 81 MG TABLET PO SCH (08:05)
[2018-06-01] MEDS: FOLIC ACID 1 MG TABLET PO SCH (08:05)
[2018-06-01] MEDS: PANTOPRAZOLE 40 MG TABLET PO SCH (08:11)
[2018-06-01] MEDS: GABAPENTIN 600 MG TABLET PO SCH ×2 (08:11→21:05)
[2018-06-01] MEDS: ASCORBIC ACID 500 MG TABLET PO SCH (08:12)
[2018-06-01] MEDS: METHOCARBAMOL 500 MG TABLET PO SCH ×3 (08:12→21:06)
[2018-06-01] MEDS: rOPINIRole 0.25 MG TABLET PO SCH (21:05)
[2018-06-01] MEDS: AMITRIPTYLINE 50 MG TABLET PO SCH (21:06)
[2018-06-01] MEDS: SODIUM CHLORIDE 0.9% 1,000 ML IV SCH (22:44)
[2018-06-01] MEDS ORDERED: METHOTREXATE 2.5 MG TABLET PO SCH (22:50)
[2018-06-02] MEDS: MEROPENEM 1,000 MG in SODIUM CHLORIDE 0.9% 100 ML IV SCH ×3 (00:58→17:40)
[2018-06-02 06:02] LABS: Basophils % 0.5 % (0.0-0.8); Eosinophils # 0.1 10*3/uL (0.0-0.87); Eosinophils % 1.4 % (0.00-10.9); Hematocrit 26.8 VOL% (42.0-52.0); Hemoglobin 9.2 GM/DL (14.0-18.0); Immature Granulocytes % 0.8 %; Immature Granulocytes Absolute 0.06 #; Lymphocytes # 1.3 10*3/uL (1.4-4.0); Lymphocytes % 16.3 % (21.2-54.2); Mean Corpuscular HGB Conc 34.3 GM/DL (32-36); Mean Corpuscular Hemoglobin 31 PG (27-34); Mean Corpuscular Volume 89.9 FL (87-102); Mean Platelet Volume 13.3 FL (9.6-12.0); Monocytes # 0.7 10*3/uL (0.11-0.8); Monocytes % 8.7 % (1.7-12.7); Neutrophils # 5.5 10*3/uL (1.4-7.4); Neutrophils % 72.3 % (38.7-73.9); Platelet Count 116 T/CUMM (130-400); Red Blood Count 2.98 MC/CUMM (3.8-5.5); Red Cell Distribution Width 14.9 % (9.3-17.3); White Blood Count 7.7 T/CUMM (4-12)
[2018-06-02 06:36] LABS: Calcium 8.6 MG/DL (8.5-10.1); Osmolality,Calculated 280.3 MOS/KG (273-304); Potassium 3.8 MMOL/L (3.5-5.1)
[2018-06-02] MEDS: ASCORBIC ACID 500 MG TABLET PO SCH (09:22)
[2018-06-02] MEDS: PANTOPRAZOLE 40 MG TABLET PO SCH (09:22)
[2018-06-02] MEDS: FOLIC ACID 1 MG TABLET PO SCH (09:22)
[2018-06-02] MEDS: ASPIRIN EC 81 MG TABLET PO SCH (09:22)
[2018-06-02] MEDS: METHOCARBAMOL 500 MG TABLET PO SCH ×3 (09:22→20:22)
[2018-06-02] MEDS: GABAPENTIN 600 MG TABLET PO SCH ×2 (09:23→20:22)
[2018-06-02] MEDS: ENOXAPARIN 30 MG/0.3 ML SYRINGE SUBCUT SCH (09:23)
[2018-06-02] MEDS: rOPINIRole 0.25 MG TABLET PO SCH (20:23)
[2018-06-02] MEDS: AMITRIPTYLINE 50 MG TABLET PO SCH (20:23)
[2018-06-03] MEDS: MEROPENEM 1,000 MG in SODIUM CHLORIDE 0.9% 100 ML IV SCH ×2 (00:42→09:42)
[2018-06-03] MEDS: PANTOPRAZOLE 40 MG TABLET PO SCH (09:42)
[2018-06-03] MEDS: ENOXAPARIN 30 MG/0.3 ML SYRINGE SUBCUT SCH (09:42)
[2018-06-03] MEDS: METHOCARBAMOL 500 MG TABLET PO SCH (09:42)
[2018-06-03] MEDS: ASPIRIN EC 81 MG TABLET PO SCH (09:42)
[2018-06-03] MEDS: ASCORBIC ACID 500 MG TABLET PO SCH (09:42)
[2018-06-03] MEDS: FOLIC ACID 1 MG TABLET PO SCH (09:42)
[2018-06-03] MEDS: GABAPENTIN 600 MG TABLET PO SCH (09:42)
[2018-06-03] MEDS ORDERED: cephALEXin 500 MG CAPSULE PO SCH (12:00)
[2018-06-03] MEDS ORDERED: AMPICILLIN 500 MG CAPSULE PO SCH (13:00)
[2018-06-03 13:12] VITALS: BP 119/62
== END 2018-06-03 13:12 | disposition home or self-care (01) | DRG 698 ==
LOC: N.ED 17:59 → N.EDINP 21:58 → SUATTDRO 21:58 → N.3E 22:53
PROVIDERS: ADMIT Internal Medicine; ATTEND Internal Medicine

== ENCOUNTER 2018-08-27 02:55 | Observation (INO) ==
[2018-08-27] MEDS ORDERED: KETOROLAC 30 MG/1 ML VIAL IV STA (04:57)
[2018-08-27] MEDS ORDERED: MEROPENEM 1,000 MG in SODIUM CHLORIDE 0.9% 100 ML IV STA ×2 (04:57→05:09)
[2018-08-27] MEDS ORDERED: fentaNYL 100 MCG/2 ML VIAL IV STA ×2 (05:01→05:35)
[2018-08-27] MEDS ORDERED: ONDANSETRON 4 MG/2 ML VIAL ONE (05:11)
[2018-08-27 05:23] LABS: Basophils % 0.3 % (0.0-0.8); Eosinophils % 0.1 % (0.00-10.9); Hematocrit 33.9 VOL% (42.0-52.0); Hemoglobin 11.2 GM/DL (14.0-18.0); Immature Granulocytes % 0.4 %; Immature Granulocytes Absolute 0.05 #; Lymphocytes # 1.5 10*3/uL (1.4-4.0); Lymphocytes % 10.4 % (21.2-54.2); Mean Corpuscular Hemoglobin 31 PG (27-34); Mean Corpuscular Volume 94.7 FL (87-102); Mean Platelet Volume 12.6 FL (9.6-12.0); Monocytes # 0.8 10*3/uL (0.11-0.8); Monocytes % 5.8 % (1.7-12.7); Neutrophils # 11.7 10*3/uL (1.4-7.4); Platelet Count 154 T/CUMM (130-400); Red Blood Count 3.58 MC/CUMM (3.8-5.5); Red Cell Distribution Width 15.9 % (9.3-17.3); White Blood Count 14.1 T/CUMM (4-12)
[2018-08-27] MEDS ORDERED: ONDANSETRON 4 MG/2 ML VIAL IV STA (05:30)
[2018-08-27 05:40] LABS: Apearance,Urine Cloudy (Clear); Urine Color Yellow (Yellow)
[2018-08-27 05:41] LABS: Bilirubin,Urine Negative (Negative); Blood, Urine Large mg/dL (Negative); Glucose,Urine (UA) Negative (Negative); Ketones,Urine Negative (Negative); Nitrite,Urine Positive (Negative); Protein,Urine 30 MG/DL; Urine Specific Gravity 1.014 (1.001-1.035); Urine Urobilinogen < 2.0 EU/DL (0.2-1.0)
[2018-08-27 05:42] LABS: Lactic Acid 1.2 MMOL/L (0.4-2.0); RBC,Urine 111 /HPF (0-4); WBC,Urine 61 /HPF (0-6)
[2018-08-27 05:43] LABS: Albumin 3.7 G/DL (3.4-5.0); Bacteria,Urine Few /HPF (Few); Bilirubin,Total 0.8 MG/DL (0.2-1.0); Calcium 9.5 MG/DL (8.5-10.1); Mucus,Urine Occasional /LPF (Occasional); Osmolality,Calculated 282.4 MOS/KG (273-304); Potassium 3.8 MMOL/L (3.5-5.1); Squamous Epithelial Cell,Urine Occasional /HPF (0-10); Total Protein 6.9 G/DL (6.4-8.3)
[2018-08-27 05:44] LABS: Amorphous Crystals,Urine Few /HPF (Few)
[2018-08-27] MEDS ORDERED: SODIUM CHLORIDE 0.9% 1,000 ML IV STA (05:44)
[2018-08-27] MEDS ORDERED: DOCUSATE SODIUM 100 MG CAPSULE PO PRN (08:40)
[2018-08-27] MEDS ORDERED: LACTULOSE 20 GM/30 ML UDCUP PO PRN (08:40)
[2018-08-27] MEDS ORDERED: ONDANSETRON 4 MG/2 ML VIAL IV PRN (08:40)
[2018-08-27] MEDS: SODIUM CHLORIDE 0.9% 1,000 ML IV SCH ×2 (09:46→17:51)
[2018-08-27] MEDS: PANTOPRAZOLE 40 MG TABLET PO SCH (09:46)
[2018-08-27] MEDS: NITROFURANTOIN MACRO/MONO 100 MG CAPSULE PO SCH (09:55)
[2018-08-27] MEDS: MORPHINE 4 MG/1 ML VIAL IV PRN ×2 (11:56→17:41)
[2018-08-27] MEDS ORDERED: MEROPENEM 1,000 MG in SODIUM CHLORIDE 0.9% 100 ML IV SCH (13:00)
[2018-08-27] MEDS: cefTRIAXone 1,000 MG in SYRINGE 1 EACH IV SCH (14:40)
[2018-08-27] MEDS: ACETAMINOPHEN 325 MG TABLET PO PRN ×2 (15:25→20:56)
[2018-08-27] MEDS: OXYBUTYNIN 5 MG TABLET PO PRN ×2 (15:26→23:49)
[2018-08-27] MEDS ORDERED: TAMSULOSIN 0.4 MG CAPSULE PO SCH (21:00)
[2018-08-28] MEDS: SODIUM CHLORIDE 0.9% 1,000 ML IV SCH ×2 (02:01→10:38)
[2018-08-28 06:02] LABS: Basophils # 0.1 10*3/uL (0.0-0.2); Basophils % 0.6 % (0.0-0.8); Eosinophils # 0.1 10*3/uL (0.0-0.87); Eosinophils % 0.8 % (0.00-10.9); Hematocrit 31.4 VOL% (42.0-52.0); Hemoglobin 10.3 GM/DL (14.0-18.0); Immature Granulocytes % 0.5 %; Immature Granulocytes Absolute 0.05 #; Lymphocytes # 1.7 10*3/uL (1.4-4.0); Lymphocytes % 15.4 % (21.2-54.2); Mean Corpuscular HGB Conc 32.8 GM/DL (32-36); Mean Corpuscular Hemoglobin 32 PG (27-34); Mean Corpuscular Volume 96.3 FL (87-102); Mean Platelet Volume 13.6 FL (9.6-12.0); Monocytes # 0.4 10*3/uL (0.11-0.8); Monocytes % 3.7 % (1.7-12.7); Neutrophils # 8.5 10*3/uL (1.4-7.4); Platelet Count 123 T/CUMM (130-400); Red Blood Count 3.26 MC/CUMM (3.8-5.5); Red Cell Distribution Width 15.9 % (9.3-17.3); White Blood Count 10.8 T/CUMM (4-12)
[2018-08-28 06:17] LABS: Calcium 8.5 MG/DL (8.5-10.1); Potassium 3.6 MMOL/L (3.5-5.1)
[2018-08-28] MEDS: NITROFURANTOIN MACRO/MONO 100 MG CAPSULE PO SCH (09:19)
[2018-08-28] MEDS: PANTOPRAZOLE 40 MG TABLET PO SCH (09:20)
[2018-08-28] MEDS: cefTRIAXone 1,000 MG in SYRINGE 1 EACH IV SCH (09:20)
[2018-08-28 11:38] VITALS: BP 134/70
[2018-09-03] MEDS: MORPHINE 4 MG/1 ML VIAL IV PRN (12:32)
== END 2018-08-28 14:06 | disposition home or self-care (01) ==
LOC: N.ED 02:55 → N.EDINP 02:55 → N.2W 08:52 → N.2E 12:41
PROVIDERS: ADMIT Internal Medicine; ATTEND Internal Medicine

== ENCOUNTER 2019-08-10 10:27 | Inpatient (IN) ==
[2019-08-10] MEDS ORDERED: ALBUTEROL/IPRATROPIUM 3 ML NEB RESP TX STA (12:13)
[2019-08-10 13:10] LABS: Apearance,Urine CLOUDY (Clear); Bacteria,Urine Moderate /HPF (Few); Bilirubin,Urine Negative (Negative); Blood, Urine Moderate mg/dL (Negative); Glucose,Urine (UA) Negative (Negative); Hyaline Casts,Urine 7 /LPF (0-3); Ketones,Urine Negative (Negative); Mucus,Urine Few /LPF (Occasional); Nitrite,Urine Positive (Negative); Protein,Urine 100 MG/DL; RBC,Urine 21 /HPF (0-4); Squamous Epithelial Cell,Urine Occasional /HPF (0-10); Urine Color Amber (Yellow); Urine Urobilinogen < 2.0 EU/DL (0.2-1.0); WBC,Urine 405 /HPF (0-6)
[2019-08-10 13:40] LABS: Basophils % 0.3 % (0.0-0.8); Eosinophils % 0.1 % (0.00-10.9); Hemoglobin 11.2 GM/DL (14.0-18.0); Immature Granulocytes % 0.7 %; Immature Granulocytes Absolute 0.09 #; Lymphocytes # 1.2 10*3/uL (1.4-4.0); Lymphocytes % 9.5 % (21.2-54.2); Mean Corpuscular Volume 96.4 FL (87-102); Mean Platelet Volume 13.6 FL (9.6-12.0); Neutrophils % 83.4 % (38.7-73.9); Platelet Count 101 T/CUMM (130-400); Red Blood Count 3.63 MC/CUMM (3.8-5.5); Red Cell Distribution Width 14.5 % (9.3-17.3); White Blood Count 12.5 T/CUMM (4-12)
[2019-08-10] MEDS ORDERED: cefTRIAXone 1,000 MG in SODIUM CHLORIDE 0.9% 100 ML IV STA (14:09)
[2019-08-10 14:12] LABS: Albumin 3.6 G/DL (3.4-5.0); Bilirubin,Total 0.9 MG/DL (0.2-1.0); Calcium 9.1 MG/DL (8.5-10.1); Osmolality,Calculated 287.8 MOS/KG (273-304); Total Protein 6.2 G/DL (6.4-8.3)
[2019-08-10] MEDS ORDERED: FUROSEMIDE 40 MG/4 ML VIAL IV STA (15:02)
[2019-08-10] MEDS ORDERED: MAGNESIUM SULF RIDER 2 GM in PREMIX 1 EACH IV PRN (15:22)
[2019-08-10] MEDS ORDERED: ONDANSETRON 4 MG/2 ML VIAL IV PRN (15:22)
[2019-08-10] MEDS ORDERED: MAGNESIUM SULF RIDER 4 GM in PREMIX 1 EACH IV PRN (15:22)
[2019-08-10] MEDS ORDERED: DOCUSATE SODIUM 100 MG CAPSULE PO PRN (15:27)
[2019-08-10] MEDS ORDERED: ALBUTEROL 2.5 MG/3 ML NEB RESP TX PRN (15:27)
[2019-08-10] MEDS ORDERED: INFLUENZA VIRUS VACCINE 0.5 ML SYRINGE IM ONE (17:45)
[2019-08-10] MEDS: GABAPENTIN 600 MG TABLET PO SCH (21:19)
[2019-08-10] MEDS: AMITRIPTYLINE 100 MG TABLET PO SCH (21:19)
[2019-08-10] MEDS: MELOXICAM 7.5 MG TABLET PO SCH (21:19)
[2019-08-10] MEDS: predniSONE 10 MG TABLET PO SCH (21:20)
[2019-08-10] MEDS: ENOXAPARIN 40 MG/0.4 ML SYRINGE SUBCUT SCH (21:20)
[2019-08-11] MEDS ORDERED: TEMAZEPAM 15 MG CAPSULE PO PRN (00:12)
[2019-08-11] MEDS: ACETAMINOPHEN 325 MG TABLET PO PRN ×2 (00:23→08:26)
[2019-08-11 06:53] LABS: Basophils % 0.3 % (0.0-0.8); Eosinophils % 0.2 % (0.00-10.9); Hematocrit 34.5 VOL% (42.0-52.0); Immature Granulocytes % 0.8 %; Lymphocytes # 1.1 10*3/uL (1.4-4.0); Lymphocytes % 9.2 % (21.2-54.2); Mean Corpuscular HGB Conc 31.9 GM/DL (32-36); Mean Corpuscular Volume 96.4 FL (87-102); Mean Platelet Volume 13.3 FL (9.6-12.0); Monocytes % 7.2 % (1.7-12.7); Neutrophils % 82.3 % (38.7-73.9); Platelet Count 100 T/CUMM (130-400); Red Blood Count 3.58 MC/CUMM (3.8-5.5); Red Cell Distribution Width 14.3 % (9.3-17.3); White Blood Count 11.9 T/CUMM (4-12)
[2019-08-11 07:10] LABS: Alanine Aminotransferase < 9 U/L (16-61); Albumin 3.4 G/DL (3.4-5.0); Alkaline Phosphatase 76 U/L (45-117); Aspartate Amino Transferase 5 U/L (0-37); Blood Urea Nitrogen 17 MG/DL (7-18); Calcium 9.2 MG/DL (8.5-10.1); Estimated Glom Filtration Rate 73 ML/MIN; Glucose 106 MG/DL (74-106); Osmolality,Calculated 287.8 MOS/KG (273-304); Total Protein 6.4 G/DL (6.4-8.3)
[2019-08-11 07:15] LABS: Ovalocytes Few; Tear Drop Cells Slight
[2019-08-11 07:16] LABS: Hypochromasia 1+; Microcytosis Slight; Platelet Estimate Decreased
[2019-08-11] MEDS: GABAPENTIN 600 MG TABLET PO SCH ×3 (08:24→20:38)
[2019-08-11] MEDS: CYANOCOBALAMIN 100 MCG TABLET PO SCH (08:25)
[2019-08-11] MEDS: ASCORBIC ACID 500 MG TABLET PO SCH (08:25)
[2019-08-11] MEDS: predniSONE 10 MG TABLET PO SCH ×2 (08:25→20:38)
[2019-08-11] MEDS: PANTOPRAZOLE 40 MG TABLET PO SCH (08:26)
[2019-08-11] MEDS: ASPIRIN EC 81 MG TABLET PO SCH (08:28)
[2019-08-11] MEDS: MELOXICAM 7.5 MG TABLET PO SCH ×2 (08:28→20:38)
[2019-08-11] MEDS: FUROSEMIDE 40 MG/4 ML VIAL IV SCH ×2 (08:28→17:15)
[2019-08-11] MEDS: BICALUTAMIDE 50 MG TABLET PO SCH (08:28)
[2019-08-11] MEDS ORDERED: POTASSIUM CHLORIDE 20 MEQ TABLET PO ONE (11:00)
[2019-08-11] MEDS: cefTRIAXone 1,000 MG in SYRINGE 1 EACH IV SCH (11:12)
[2019-08-11] MEDS: METOPROLOL SUCCINATE XL 25 MG TABLET PO SCH (11:12)
[2019-08-11] MEDS: ALBUTEROL/IPRATROPIUM 3 ML NEB RESP TX SCH ×4 (15:00→23:12)
[2019-08-11] MEDS: ENOXAPARIN 40 MG/0.4 ML SYRINGE SUBCUT SCH (20:38)
[2019-08-11] MEDS: AMITRIPTYLINE 100 MG TABLET PO SCH (20:38)
[2019-08-12] MEDS: ALBUTEROL/IPRATROPIUM 3 ML NEB RESP TX SCH ×3 (02:24→11:02)
[2019-08-12 06:29] LABS: Basophils % 0.3 % (0.0-0.8); Eosinophils % 0.1 % (0.00-10.9); Hematocrit 36.5 VOL% (42.0-52.0); Hemoglobin 11.8 GM/DL (14.0-18.0); Immature Granulocytes % 0.7 %; Immature Granulocytes Absolute 0.07 #; Lymphocytes % 9.7 % (21.2-54.2); Mean Corpuscular HGB Conc 32.3 GM/DL (32-36); Mean Corpuscular Volume 95.5 FL (87-102); Mean Platelet Volume 14.5 FL (9.6-12.0); Monocytes % 7.4 % (1.7-12.7); Neutrophils % 81.8 % (38.7-73.9); Platelet Count 103 T/CUMM (130-400); Red Blood Count 3.82 MC/CUMM (3.8-5.5); Red Cell Distribution Width 14.2 % (9.3-17.3); White Blood Count 10.5 T/CUMM (4-12)
[2019-08-12 06:45] LABS: Calcium 9.4 MG/DL (8.5-10.1); Osmolality,Calculated 289.7 MOS/KG (273-304)
[2019-08-12] MEDS: METOPROLOL SUCCINATE XL 25 MG TABLET PO SCH (08:51)
[2019-08-12] MEDS: ASPIRIN EC 81 MG TABLET PO SCH (08:52)
[2019-08-12] MEDS: MELOXICAM 7.5 MG TABLET PO SCH (08:52)
[2019-08-12] MEDS: ASCORBIC ACID 500 MG TABLET PO SCH (08:52)
[2019-08-12] MEDS: PANTOPRAZOLE 40 MG TABLET PO SCH (08:53)
[2019-08-12] MEDS: predniSONE 10 MG TABLET PO SCH (08:53)
[2019-08-12] MEDS: GABAPENTIN 600 MG TABLET PO SCH (08:53)
[2019-08-12] MEDS: CYANOCOBALAMIN 100 MCG TABLET PO SCH (08:56)
[2019-08-12] MEDS: BICALUTAMIDE 50 MG TABLET PO SCH (08:56)
[2019-08-12] MEDS: cefTRIAXone 1,000 MG in SYRINGE 1 EACH IV SCH (08:57)
[2019-08-12] MEDS ORDERED: FUROSEMIDE 40 MG/4 ML VIAL IV SCH (09:00)
[2019-08-12] MEDS: FUROSEMIDE 40 MG/4 ML VIAL IV SCH (09:00)
[2019-08-12] MEDS ORDERED: LOSARTAN 25 MG TABLET PO SCH (09:00)
[2019-08-12 11:47] VITALS: BP 131/71
[2019-08-12] MEDS ORDERED: CEFUROXIME 250 MG TABLET PO SCH (21:00)
== END 2019-08-12 12:12 | disposition home health service (06) | DRG 698 ==
LOC: N.ED 10:27 → N.EDINP 15:22 → N.2E 17:19
PROVIDERS: ADMIT Internal Medicine; ATTEND Internal Medicine

== ENCOUNTER 2019-10-14 14:21 | Inpatient (IN) ==
[2019-10-14 16:57] LABS: Basophils # 0.1 10*3/uL (0.0-0.2); Basophils % 0.5 % (0.0-0.8); Eosinophils # 0.1 10*3/uL (0.0-0.87); Eosinophils % 0.4 % (0.00-10.9); Hemoglobin 12.6 GM/DL (14.0-18.0); Immature Granulocytes % 0.9 %; Immature Granulocytes Absolute 0.12 #; Lymphocytes # 1.6 10*3/uL (1.4-4.0); Lymphocytes % 11.5 % (21.2-54.2); Mean Corpuscular HGB Conc 32.3 GM/DL (32-36); Mean Corpuscular Volume 95.6 FL (87-102); Mean Platelet Volume 13.5 FL (9.6-12.0); Monocytes % 8.6 % (1.7-12.7); Neutrophils % 78.1 % (38.7-73.9); Platelet Count 108 T/CUMM (130-400); Red Blood Count 4.08 MC/CUMM (3.8-5.5); Red Cell Distribution Width 14.6 % (9.3-17.3); White Blood Count 13.7 T/CUMM (4-12)
[2019-10-14 17:09] LABS: PT Patient Result 11.2 SECS (9.6-12.2)
[2019-10-14 17:21] LABS: Albumin 3.4 G/DL (3.4-5.0); Bilirubin,Total 1.4 MG/DL (0.2-1.0); Calcium 9.1 MG/DL (8.5-10.1); Osmolality,Calculated 280.3 MOS/KG (273-304); Total Protein 6.9 G/DL (6.4-8.3)
[2019-10-14 19:20] LABS: Uric Acid 5.5 MG/DL (3.5-7.2)
[2019-10-14] MEDS ORDERED: ONDANSETRON 4 MG/2 ML VIAL IV PRN (20:28)
[2019-10-14] MEDS ORDERED: ALBUTEROL 2.5 MG/3 ML NEB RESP TX PRN (20:28)
[2019-10-14] MEDS ORDERED: DOCUSATE SODIUM 100 MG CAPSULE PO PRN (20:28)
[2019-10-14] MEDS: SODIUM CHLORIDE 0.9% 1,000 ML IV SCH (21:02)
[2019-10-14] MEDS: predniSONE 10 MG TABLET PO SCH (21:03)
[2019-10-14] MEDS: ENOXAPARIN 30 MG/0.3 ML SYRINGE SUBCUT SCH (21:03)
[2019-10-14] MEDS: cefTRIAXone 1,000 MG in SYRINGE 1 EACH IV SCH (21:04)
[2019-10-14] MEDS: AMITRIPTYLINE 50 MG TABLET PO SCH (21:04)
[2019-10-14] MEDS: GABAPENTIN 600 MG TABLET PO SCH (21:04)
[2019-10-15] MEDS: BICALUTAMIDE 50 MG TABLET PO SCH (08:56)
[2019-10-15] MEDS: GABAPENTIN 600 MG TABLET PO SCH ×3 (08:56→22:40)
[2019-10-15] MEDS: CYANOCOBALAMIN 100 MCG TABLET PO SCH (08:56)
[2019-10-15] MEDS: ASPIRIN EC 81 MG TABLET PO SCH (08:56)
[2019-10-15] MEDS: PANTOPRAZOLE 40 MG TABLET PO SCH (08:56)
[2019-10-15] MEDS: predniSONE 10 MG TABLET PO SCH ×2 (08:56→22:39)
[2019-10-15] MEDS: ASCORBIC ACID 500 MG TABLET PO SCH (08:56)
[2019-10-15] MEDS: SODIUM CHLORIDE 0.9% 1,000 ML IV SCH ×2 (10:10→22:39)
[2019-10-15] MEDS: AMITRIPTYLINE 50 MG TABLET PO SCH (22:40)
[2019-10-15] MEDS: ENOXAPARIN 30 MG/0.3 ML SYRINGE SUBCUT SCH (22:40)
[2019-10-15] MEDS: cefTRIAXone 1,000 MG in SYRINGE 1 EACH IV SCH (22:40)
[2019-10-16] MEDS: GABAPENTIN 600 MG TABLET PO SCH ×3 (08:28→21:45)
[2019-10-16] MEDS: ASPIRIN EC 81 MG TABLET PO SCH (08:28)
[2019-10-16] MEDS: BICALUTAMIDE 50 MG TABLET PO SCH (08:29)
[2019-10-16] MEDS: CYANOCOBALAMIN 100 MCG TABLET PO SCH (08:29)
[2019-10-16] MEDS: predniSONE 10 MG TABLET PO SCH ×2 (08:29→21:45)
[2019-10-16] MEDS: PANTOPRAZOLE 40 MG TABLET PO SCH (08:29)
[2019-10-16] MEDS: ASCORBIC ACID 500 MG TABLET PO SCH (08:29)
[2019-10-16 09:02] LABS: Basophils # 0.1 10*3/uL (0.0-0.2); Basophils % 0.4 % (0.0-0.8); Eosinophils % 0.1 % (0.00-10.9); Hematocrit 37.7 VOL% (42.0-52.0); Hemoglobin 12.2 GM/DL (14.0-18.0); Immature Granulocytes % 0.6 %; Immature Granulocytes Absolute 0.07 #; Lymphocytes # 1.1 10*3/uL (1.4-4.0); Lymphocytes % 8.8 % (21.2-54.2); Mean Corpuscular HGB Conc 32.4 GM/DL (32-36); Mean Corpuscular Volume 93.5 FL (87-102); Mean Platelet Volume 12.8 FL (9.6-12.0); Monocytes % 5.7 % (1.7-12.7); Neutrophils % 84.4 % (38.7-73.9); Platelet Count 108 T/CUMM (130-400); Red Blood Count 4.03 MC/CUMM (3.8-5.5); Red Cell Distribution Width 14.4 % (9.3-17.3); White Blood Count 12.5 T/CUMM (4-12)
[2019-10-16 09:30] LABS: Calcium 8.8 MG/DL (8.5-10.1); Osmolality,Calculated 280.3 MOS/KG (273-304)
[2019-10-16] MEDS: SODIUM CHLORIDE 0.9% 1,000 ML IV SCH (12:58)
[2019-10-16] MEDS: ENOXAPARIN 30 MG/0.3 ML SYRINGE SUBCUT SCH (21:45)
[2019-10-16] MEDS: AMITRIPTYLINE 50 MG TABLET PO SCH (21:45)
[2019-10-16] MEDS: cefTRIAXone 1,000 MG in SYRINGE 1 EACH IV SCH (21:46)
[2019-10-17 04:43] LABS: Basophils # 0.1 10*3/uL (0.0-0.2); Basophils % 0.3 % (0.0-0.8); Eosinophils % 0.1 % (0.00-10.9); Hematocrit 38.6 VOL% (42.0-52.0); Hemoglobin 12.3 GM/DL (14.0-18.0); Immature Granulocytes % 0.9 %; Immature Granulocytes Absolute 0.13 #; Lymphocytes # 1.2 10*3/uL (1.4-4.0); Lymphocytes % 7.9 % (21.2-54.2); Mean Corpuscular HGB Conc 31.9 GM/DL (32-36); Mean Corpuscular Volume 95.5 FL (87-102); Mean Platelet Volume 13.5 FL (9.6-12.0); Monocytes % 5.7 % (1.7-12.7); Neutrophils % 85.1 % (38.7-73.9); Platelet Count 121 T/CUMM (130-400); Red Blood Count 4.04 MC/CUMM (3.8-5.5); Red Cell Distribution Width 14.4 % (9.3-17.3); White Blood Count 14.8 T/CUMM (4-12)
[2019-10-17 06:07] LABS: Albumin 3.3 G/DL (3.4-5.0); Bilirubin,Direct 0.2 MG/DL (0.0-0.20); Bilirubin,Indirect 0.4 MG/DL (0.0-1.0); Bilirubin,Total 0.6 MG/DL (0.2-1.0); Total Protein 6.9 G/DL (6.4-8.3)
[2019-10-17] MEDS: SODIUM CHLORIDE 0.9% 1,000 ML IV SCH (07:33)
[2019-10-17] MEDS: CYANOCOBALAMIN 100 MCG TABLET PO SCH (08:16)
[2019-10-17] MEDS: BICALUTAMIDE 50 MG TABLET PO SCH (08:16)
[2019-10-17] MEDS: PANTOPRAZOLE 40 MG TABLET PO SCH (08:16)
[2019-10-17] MEDS: ASPIRIN EC 81 MG TABLET PO SCH (08:16)
[2019-10-17] MEDS: GABAPENTIN 600 MG TABLET PO SCH ×3 (08:16→21:13)
[2019-10-17] MEDS: predniSONE 10 MG TABLET PO SCH ×2 (08:16→21:13)
[2019-10-17] MEDS: ASCORBIC ACID 500 MG TABLET PO SCH (08:36)
[2019-10-17] MEDS: LOSARTAN 50 MG TABLET PO SCH (12:23)
[2019-10-17] MEDS ORDERED: FUROSEMIDE 40 MG/4 ML VIAL IV ONE (20:32)
[2019-10-17] MEDS: AMITRIPTYLINE 50 MG TABLET PO SCH (21:13)
[2019-10-17] MEDS: cefTRIAXone 1,000 MG in SYRINGE 1 EACH IV SCH (21:14)
[2019-10-17] MEDS: ENOXAPARIN 30 MG/0.3 ML SYRINGE SUBCUT SCH (21:14)
[2019-10-18] MEDS: ASCORBIC ACID 500 MG TABLET PO SCH (09:36)
[2019-10-18] MEDS: predniSONE 10 MG TABLET PO SCH ×2 (09:37→20:44)
[2019-10-18] MEDS: BICALUTAMIDE 50 MG TABLET PO SCH (09:37)
[2019-10-18] MEDS: PANTOPRAZOLE 40 MG TABLET PO SCH (09:37)
[2019-10-18] MEDS: ASPIRIN EC 81 MG TABLET PO SCH (09:37)
[2019-10-18] MEDS: GABAPENTIN 600 MG TABLET PO SCH ×3 (09:37→20:44)
[2019-10-18] MEDS: CYANOCOBALAMIN 100 MCG TABLET PO SCH (09:37)
[2019-10-18] MEDS: LOSARTAN 50 MG TABLET PO SCH (09:38)
[2019-10-18] MEDS: ENOXAPARIN 30 MG/0.3 ML SYRINGE SUBCUT SCH (20:45)
[2019-10-18] MEDS: AMITRIPTYLINE 50 MG TABLET PO SCH (20:45)
[2019-10-18] MEDS: cefTRIAXone 1,000 MG in SYRINGE 1 EACH IV SCH (20:45)
[2019-10-19 05:50] LABS: Basophils # 0.1 10*3/uL (0.0-0.2); Basophils % 0.4 % (0.0-0.8); Eosinophils % 0.1 % (0.00-10.9); Hematocrit 36.5 VOL% (42.0-52.0); Immature Granulocytes Absolute 0.14 #; Lymphocytes # 1.1 10*3/uL (1.4-4.0); Lymphocytes % 7.9 % (21.2-54.2); Mean Corpuscular HGB Conc 32.9 GM/DL (32-36); Mean Corpuscular Volume 93.1 FL (87-102); Monocytes % 6.4 % (1.7-12.7); Neutrophils % 84.2 % (38.7-73.9); Platelet Count 117 T/CUMM (130-400); Red Blood Count 3.92 MC/CUMM (3.8-5.5); Red Cell Distribution Width 14.3 % (9.3-17.3); White Blood Count 13.5 T/CUMM (4-12)
[2019-10-19 06:20] LABS: Calcium 9.2 MG/DL (8.5-10.1); Osmolality,Calculated 283.1 MOS/KG (273-304)
[2019-10-19] MEDS: ASCORBIC ACID 500 MG TABLET PO SCH (08:04)
[2019-10-19] MEDS: ASPIRIN EC 81 MG TABLET PO SCH (08:04)
[2019-10-19] MEDS: CYANOCOBALAMIN 100 MCG TABLET PO SCH (08:04)
[2019-10-19] MEDS: BICALUTAMIDE 50 MG TABLET PO SCH (08:04)
[2019-10-19] MEDS: predniSONE 10 MG TABLET PO SCH ×2 (08:04→20:48)
[2019-10-19] MEDS: LOSARTAN 50 MG TABLET PO SCH (08:04)
[2019-10-19] MEDS: GABAPENTIN 600 MG TABLET PO SCH ×3 (08:04→20:48)
[2019-10-19] MEDS: PANTOPRAZOLE 40 MG TABLET PO SCH (08:05)
[2019-10-19] MEDS: POTASSIUM CHLORIDE 20 MEQ TABLET PO PRN ×2 (10:42→16:53)
[2019-10-19] MEDS ORDERED: MIDAZOLAM 2 MG/2 ML VIAL IV ONE (13:00)
[2019-10-19] MEDS ORDERED: fentaNYL 100 MCG/2 ML VIAL IV ONE (13:00)
[2019-10-19] MEDS: cefTRIAXone 1,000 MG in SYRINGE 1 EACH IV SCH (20:47)
[2019-10-19] MEDS: ENOXAPARIN 30 MG/0.3 ML SYRINGE SUBCUT SCH (20:48)
[2019-10-19] MEDS: AMITRIPTYLINE 50 MG TABLET PO SCH (20:48)
[2019-10-20 05:49] LABS: Basophils # 0.1 10*3/uL (0.0-0.2); Basophils % 0.4 % (0.0-0.8); Eosinophils % 0.1 % (0.00-10.9); Hematocrit 37.9 VOL% (42.0-52.0); Hemoglobin 12.2 GM/DL (14.0-18.0); Immature Granulocytes Absolute 0.14 #; Lymphocytes # 1.3 10*3/uL (1.4-4.0); Lymphocytes % 9.6 % (21.2-54.2); Mean Corpuscular HGB Conc 32.2 GM/DL (32-36); Mean Corpuscular Volume 94.3 FL (87-102); Mean Platelet Volume 13.8 FL (9.6-12.0); Monocytes % 5.8 % (1.7-12.7); Neutrophils % 83.1 % (38.7-73.9); Platelet Count 112 T/CUMM (130-400); Red Blood Count 4.02 MC/CUMM (3.8-5.5); Red Cell Distribution Width 14.6 % (9.3-17.3); White Blood Count 13.4 T/CUMM (4-12)
[2019-10-20 06:37] LABS: Calcium 9.5 MG/DL (8.5-10.1); Osmolality,Calculated 283.1 MOS/KG (273-304)
[2019-10-20] MEDS: BICALUTAMIDE 50 MG TABLET PO SCH (09:46)
[2019-10-20] MEDS: LOSARTAN 50 MG TABLET PO SCH (09:46)
[2019-10-20] MEDS: predniSONE 10 MG TABLET PO SCH ×2 (09:46→21:27)
[2019-10-20] MEDS: GABAPENTIN 600 MG TABLET PO SCH ×3 (09:46→21:27)
[2019-10-20] MEDS: PANTOPRAZOLE 40 MG TABLET PO SCH (09:46)
[2019-10-20] MEDS: CYANOCOBALAMIN 100 MCG TABLET PO SCH (09:46)
[2019-10-20] MEDS: ASCORBIC ACID 500 MG TABLET PO SCH (09:46)
[2019-10-20] MEDS: ASPIRIN EC 81 MG TABLET PO SCH (09:46)
[2019-10-20] MEDS ORDERED: DIAZEPAM 5 MG TABLET PO ONE (12:53)
[2019-10-20] MEDS ORDERED: HEPARIN/NACL 0.9% 2 UNITS/ML 2,000 ML IV ONE (13:40)
[2019-10-20] MEDS ORDERED: fentaNYL 100 MCG/2 ML VIAL ONE (14:05)
[2019-10-20] MEDS ORDERED: MIDAZOLAM 2 MG/2 ML VIAL ONE (14:06)
[2019-10-20] MEDS ORDERED: HEPARIN 5,000 UNIT/1 ML VIAL ONE (15:12)
[2019-10-20] MEDS ORDERED: HEPARIN 5,000 UNIT/1 ML VIAL IV PRN (15:18)
[2019-10-20] MEDS: ENOXAPARIN 30 MG/0.3 ML SYRINGE SUBCUT SCH (21:26)
[2019-10-20] MEDS: cefTRIAXone 1,000 MG in SYRINGE 1 EACH IV SCH (21:26)
[2019-10-20] MEDS: AMITRIPTYLINE 50 MG TABLET PO SCH (21:27)
[2019-10-21] MEDS: GABAPENTIN 600 MG TABLET PO SCH ×3 (09:19→21:14)
[2019-10-21] MEDS: ASCORBIC ACID 500 MG TABLET PO SCH (09:19)
[2019-10-21] MEDS: PANTOPRAZOLE 40 MG TABLET PO SCH (09:20)
[2019-10-21] MEDS: predniSONE 10 MG TABLET PO SCH ×2 (09:20→21:15)
[2019-10-21] MEDS: ASPIRIN EC 81 MG TABLET PO SCH (09:20)
[2019-10-21] MEDS: CYANOCOBALAMIN 100 MCG TABLET PO SCH (09:20)
[2019-10-21] MEDS: LOSARTAN 50 MG TABLET PO SCH (09:20)
[2019-10-21] MEDS: BICALUTAMIDE 50 MG TABLET PO SCH (09:24)
[2019-10-21] MEDS: ENOXAPARIN 30 MG/0.3 ML SYRINGE SUBCUT SCH (21:15)
[2019-10-21] MEDS: AMITRIPTYLINE 50 MG TABLET PO SCH (21:15)
[2019-10-21] MEDS: cefTRIAXone 1,000 MG in SYRINGE 1 EACH IV SCH (21:15)
[2019-10-22] MEDS: LOSARTAN 50 MG TABLET PO SCH (08:03)
[2019-10-22] MEDS: ASPIRIN EC 81 MG TABLET PO SCH (08:04)
[2019-10-22] MEDS: ASCORBIC ACID 500 MG TABLET PO SCH (08:04)
[2019-10-22] MEDS: GABAPENTIN 600 MG TABLET PO SCH (08:04)
[2019-10-22] MEDS: PANTOPRAZOLE 40 MG TABLET PO SCH (08:04)
[2019-10-22] MEDS: BICALUTAMIDE 50 MG TABLET PO SCH (08:04)
[2019-10-22] MEDS: predniSONE 10 MG TABLET PO SCH (08:04)
[2019-10-22] MEDS: CYANOCOBALAMIN 100 MCG TABLET PO SCH (08:08)
[2019-10-22 13:01] VITALS: BP 130/80
== END 2019-10-22 14:35 | disposition home health service (06) | DRG 252 ==
LOC: N.5E 14:21 → N.ED 14:21 → SUATTDRO 19:40 → N.5E 19:45
PROVIDERS: ADMIT Internal Medicine; ATTEND Internal Medicine

== ENCOUNTER 2019-11-02 10:23 | Observation (INO) ==
[2019-11-02 11:29] LABS: Albumin 3.5 G/DL (3.4-5.0); Bilirubin,Total 0.5 MG/DL (0.2-1.0); Calcium 9.3 MG/DL (8.5-10.1); Total Protein 6.4 G/DL (6.4-8.3)
[2019-11-02] MEDS ORDERED: ASPIRIN CHEW 81 MG TABLET PO STA (13:00)
[2019-11-02] MEDS ORDERED: FUROSEMIDE 100 MG/10 ML VIAL IV STA (13:00)
[2019-11-02] MEDS ORDERED: ENOXAPARIN 30 MG/0.3 ML SYRINGE SUBCUT STA (13:00)
[2019-11-02 13:25] LABS: Basophils % 0.2 % (0.0-0.8); Hematocrit 36.4 VOL% (42.0-52.0); Hemoglobin 11.7 GM/DL (14.0-18.0); Immature Granulocytes % 1.5 %; Immature Granulocytes Absolute 0.25 #; Lymphocytes # 0.9 10*3/uL (1.4-4.0); Lymphocytes % 5.4 % (21.2-54.2); Mean Corpuscular HGB Conc 32.1 GM/DL (32-36); Mean Corpuscular Volume 97.6 FL (87-102); Mean Platelet Volume 13.4 FL (9.6-12.0); Monocytes % 5.6 % (1.7-12.7); NRBC # 0.02 10*3/uL; Neutrophils % 87.3 % (38.7-73.9); Platelet Count 117 T/CUMM (130-400); Red Blood Count 3.73 MC/CUMM (3.8-5.5); Red Cell Distribution Width 14.6 % (9.3-17.3)
[2019-11-02] MEDS ORDERED: ENOXAPARIN 100 MG/ML SYRINGE SUBCUT ONE (13:37)
[2019-11-02 13:41] LABS: PT Patient Result 11.1 SECS (9.6-12.2); Partial Thromboplastin Time 27.9 SECS (20.8-36.0)
[2019-11-02] MEDS ORDERED: ONDANSETRON 4 MG/2 ML VIAL IV PRN (14:20)
[2019-11-02] MEDS ORDERED: MAGNESIUM SULF RIDER 4 GM in PREMIX 1 EACH IV PRN (14:20)
[2019-11-02] MEDS ORDERED: MAGNESIUM SULF RIDER 2 GM in PREMIX 1 EACH IV PRN (14:20)
[2019-11-02] MEDS: FUROSEMIDE 40 MG/4 ML VIAL IV SCH (17:47)
[2019-11-02] MEDS: NICOTINE 7 MG/24 HR PATCH TRANSDERM SCH (17:47)
[2019-11-02 18:47] LABS: Apearance,Urine CLEAR (Clear); Bacteria,Urine Occasional /HPF (Few); Bilirubin,Urine Negative (Negative); Blood, Urine Negative (Negative); Glucose,Urine (UA) Negative (Negative); Ketones,Urine Negative (Negative); Mucus,Urine Occasional /LPF (Occasional); Nitrite,Urine Negative (Negative); Protein,Urine Negative; RBC,Urine 1 /HPF (0-4); Urine Color Colorless (Yellow); Urine Specific Gravity 1.005 (1.001-1.035); Urine Urobilinogen < 2.0 EU/DL (0.2-1.0)
[2019-11-03 06:01] LABS: Basophils # 0.1 10*3/uL (0.0-0.2); Basophils % 0.4 % (0.0-0.8); Eosinophils # 0.1 10*3/uL (0.0-0.87); Eosinophils % 0.6 % (0.00-10.9); Hematocrit 33.4 VOL% (42.0-52.0); Hemoglobin 10.8 GM/DL (14.0-18.0); Immature Granulocytes % 1.1 %; Immature Granulocytes Absolute 0.16 #; Lymphocytes # 2.1 10*3/uL (1.4-4.0); Lymphocytes % 15.2 % (21.2-54.2); Mean Corpuscular HGB Conc 32.3 GM/DL (32-36); Mean Corpuscular Volume 95.4 FL (87-102); Mean Platelet Volume 13.6 FL (9.6-12.0); Monocytes % 8.1 % (1.7-12.7); NRBC # 0.02 10*3/uL; Neutrophils % 74.6 % (38.7-73.9); Platelet Count 107 T/CUMM (130-400); Red Cell Distribution Width 14.7 % (9.3-17.3)
[2019-11-03 06:56] LABS: Albumin 3.2 G/DL (3.4-5.0); Bilirubin,Total 1.3 MG/DL (0.2-1.0); Calcium 9.2 MG/DL (8.5-10.1); Osmolality,Calculated 285.3 MOS/KG (273-304); Thyroid Stimulating Hormone 1.58 uIU/ml (0.358-3.74); Total Protein 6.1 G/DL (6.4-8.3)
[2019-11-03] MEDS: PANTOPRAZOLE 40 MG TABLET PO SCH (09:22)
[2019-11-03] MEDS: FUROSEMIDE 40 MG/4 ML VIAL IV SCH ×2 (09:23→16:15)
[2019-11-03] MEDS: NICOTINE 7 MG/24 HR PATCH TRANSDERM SCH (09:23)
[2019-11-03] MEDS: POTASSIUM CHLORIDE 20 MEQ TABLET PO PRN ×2 (10:53→12:39)
[2019-11-03] MEDS ORDERED: METOPROLOL SUCCINATE XL 25 MG TABLET PO SCH (11:30)
[2019-11-03] MEDS: ASPIRIN EC 81 MG TABLET PO SCH (12:38)
[2019-11-04 05:43] LABS: Basophils # 0.1 10*3/uL (0.0-0.2); Basophils % 0.5 % (0.0-0.8); Eosinophils # 0.1 10*3/uL (0.0-0.87); Eosinophils % 0.9 % (0.00-10.9); Hematocrit 38.3 VOL% (42.0-52.0); Hemoglobin 12.4 GM/DL (14.0-18.0); Immature Granulocytes % 1.2 %; Immature Granulocytes Absolute 0.14 #; Lymphocytes % 17.2 % (21.2-54.2); Mean Corpuscular HGB Conc 32.4 GM/DL (32-36); Mean Corpuscular Volume 94.6 FL (87-102); Mean Platelet Volume 13.7 FL (9.6-12.0); Monocytes % 8.1 % (1.7-12.7); NRBC # 0.02 10*3/uL; Neutrophils % 72.1 % (38.7-73.9); Platelet Count 116 T/CUMM (130-400); Red Blood Count 4.05 MC/CUMM (3.8-5.5); Red Cell Distribution Width 14.4 % (9.3-17.3); White Blood Count 11.7 T/CUMM (4-12)
[2019-11-04 06:16] LABS: Calcium 9.4 MG/DL (8.5-10.1); Osmolality,Calculated 288.1 MOS/KG (273-304)
[2019-11-04 06:26] LABS: Albumin 3.4 G/DL (3.4-5.0); Bilirubin,Total 1.5 MG/DL (0.2-1.0); Calcium 9.6 MG/DL (8.5-10.1); Osmolality,Calculated 287.3 MOS/KG (273-304); Total Protein 6.3 G/DL (6.4-8.3)
[2019-11-04 06:32] LABS: Risk Ratio 2.52; VLDL CHOLESTEROL 15.4 MG/DL
[2019-11-04] MEDS ORDERED: METOPROLOL SUCCINATE XL 25 MG TABLET PO SCH (07:42)
[2019-11-04 08:40] VITALS: BP 109/67
[2019-11-04] MEDS ORDERED: FUROSEMIDE 40 MG TABLET PO SCH (09:00)
[2019-11-04] MEDS: NICOTINE 7 MG/24 HR PATCH TRANSDERM SCH (09:27)
[2019-11-04] MEDS: ASPIRIN EC 81 MG TABLET PO SCH (09:27)
[2019-11-04] MEDS: PANTOPRAZOLE 40 MG TABLET PO SCH (09:28)
[2019-11-04] MEDS: FUROSEMIDE 40 MG/4 ML VIAL IV SCH (09:50)
== END 2019-11-04 12:00 | disposition home or self-care (01) ==
LOC: N.ED 10:23 → N.EDINP 10:23 → N.TELEN 15:25
PROVIDERS: ADMIT Family Medicine; ATTEND Family Medicine

== ENCOUNTER 2020-03-02 19:13 | Inpatient (IN) ==
[2020-03-02] MEDS ORDERED: SODIUM CHLORIDE 0.9% 500 ML IV STA (19:38)
[2020-03-02 19:57] LABS: Basophils # 0.1 10*3/uL (0.0-0.2); Basophils % 0.4 % (0.0-0.8); Eosinophils # 0.1 10*3/uL (0.0-0.87); Eosinophils % 0.5 % (0.00-10.9); Hematocrit 24.9 VOL% (42.0-52.0); Immature Granulocytes % 0.9 %; Immature Granulocytes Absolute 0.12 #; Lymphocytes # 0.8 10*3/uL (1.4-4.0); Lymphocytes % 5.9 % (21.2-54.2); Mean Corpuscular HGB Conc 32.1 GM/DL (32-36); Mean Corpuscular Volume 97.3 FL (87-102); Monocytes % 9.3 % (1.7-12.7); Platelet Count 158 T/CUMM (130-400); Red Blood Count 2.56 MC/CUMM (3.8-5.5); Red Cell Distribution Width 16.5 % (9.3-17.3); White Blood Count 13.5 T/CUMM (4-12)
[2020-03-02 20:17] LABS: INR 1.1; PT Patient Result 11.4 SECS (9.8-11.9)
[2020-03-02 20:20] LABS: Alanine Aminotransferase 9 U/L (16-61); Albumin 3.1 G/DL (3.4-5.0); Alkaline Phosphatase 93 U/L (45-117); Aspartate Amino Transferase 10 U/L (0-37); Blood Urea Nitrogen 21 MG/DL (7-18); Calcium 9.4 MG/DL (8.5-10.1); Estimated Glom Filtration Rate 38 ML/MIN; Glucose 101 MG/DL (74-106); Total Protein 6.7 G/DL (6.4-8.3)
[2020-03-02 20:49] LABS: Apearance,Urine Slightly Hazy (Clear); Bilirubin,Urine Negative (Negative); Blood, Urine Negative (Negative); Glucose,Urine (UA) Negative (Negative); Hyaline Casts,Urine 15 /LPF (0-3); Ketones,Urine Negative (Negative); Mucus,Urine Occasional /LPF (Occasional); Nitrite,Urine Negative (Negative); Protein,Urine Negative; RBC,Urine 25 /HPF (0-4); Squamous Epithelial Cell,Urine Occasional /HPF (0-10); Urine Color Yellow (Yellow); Urine Specific Gravity 1.008 (1.001-1.035); Urine Urobilinogen < 2.0 EU/DL (0.2-1.0); WBC,Urine 4 /HPF (0-6)
[2020-03-02] MEDS ORDERED: cefTRIAXone 1,000 MG in SODIUM CHLORIDE 0.9% 100 ML IV STA (21:00)
[2020-03-02 21:21] LABS: Barbiturates Screen,Urine Negative (Negative); Benzodiazepines Screen,Urine Negative (Negative); Cannabinoid Screen,Urine Negative (Negative); Opiate Screen,Urine Negative (Negative); Phencyclidine Screen,Urine Negative (Negative)
[2020-03-02] MEDS ORDERED: ACETAMINOPHEN 325 MG TABLET PO PRN (21:48)
[2020-03-02] MEDS ORDERED: guaiFENesin/DM ER 600-30 MG TABLET PO PRN (21:48)
[2020-03-02] MEDS ORDERED: GLUCAGON 1 MG VIAL IM PRN (21:48)
[2020-03-02] MEDS ORDERED: diphenhydrAMINE CAP 25 MG CAPSULE PO PRN (21:48)
[2020-03-02] MEDS ORDERED: ONDANSETRON 4 MG/2 ML VIAL IV PRN (21:48)
[2020-03-02] MEDS ORDERED: NICOTINE 21 MG/24 HR PATCH TRANSDERM PRN (21:48)
[2020-03-02] MEDS ORDERED: hydrALAZINE 20 MG/1 ML VIAL IV PRN (21:48)
[2020-03-02] MEDS ORDERED: DEXTROSE 50% 25 GM/50 ML VIAL IV PRN (21:48)
[2020-03-02] MEDS ORDERED: DOCUSATE SODIUM 100 MG CAPSULE PO PRN (21:48)
[2020-03-02] MEDS ORDERED: ZALEPLON 5 MG CAPSULE PO PRN (21:48)
[2020-03-02] MEDS ORDERED: AZITHROMYCIN INJ 500 MG in SODIUM CHLORIDE 0.9% 250 ML IV SCH (22:00)
[2020-03-02] MEDS ORDERED: VANCOMYCIN INJ 1,250 MG in SODIUM CHLORIDE 0.9% 250 ML IV PRN (22:59)
[2020-03-02] MEDS: PIPERACILLIN/TAZOBACTAM 3,375 MG in SODIUM CHLORIDE 0.9% 100 ML IV SCH (23:30)
[2020-03-02] MEDS: SODIUM CHLORIDE 0.9% 1,000 ML IV SCH (23:30)
[2020-03-03] MEDS ORDERED: VANCOMYCIN INJ 2,000 MG in SODIUM CHLORIDE 0.9% 500 ML IV ONE (04:00)
[2020-03-03 05:16] LABS: Basophils % 0.3 % (0.0-0.8); Eosinophils # 0.2 10*3/uL (0.0-0.87); Eosinophils % 1.3 % (0.00-10.9); Hematocrit 23.6 VOL% (42.0-52.0); Hemoglobin 7.5 GM/DL (14.0-18.0); Immature Granulocytes Absolute 0.12 #; Lymphocytes # 1.6 10*3/uL (1.4-4.0); Lymphocytes % 13.3 % (21.2-54.2); Mean Corpuscular HGB Conc 31.8 GM/DL (32-36); Mean Corpuscular Volume 97.1 FL (87-102); Mean Platelet Volume 12.9 FL (9.6-12.0); Monocytes % 8.3 % (1.7-12.7); Neutrophils % 75.8 % (38.7-73.9); Platelet Count 158 T/CUMM (130-400); Red Blood Count 2.43 MC/CUMM (3.8-5.5); Red Cell Distribution Width 16.2 % (9.3-17.3); White Blood Count 12.4 T/CUMM (4-12)
[2020-03-03 05:41] LABS: Alanine Aminotransferase < 9 U/L (16-61); Albumin 2.7 G/DL (3.4-5.0); Alkaline Phosphatase 77 U/L (45-117); Aspartate Amino Transferase 8 U/L (0-37); Blood Urea Nitrogen 21 MG/DL (7-18); Calcium 9.1 MG/DL (8.5-10.1); Estimated Glom Filtration Rate 47 ML/MIN; Glucose 81 MG/DL (74-106); Osmolality,Calculated 284.1 MOS/KG (273-304); Total Protein 5.9 G/DL (6.4-8.3)
[2020-03-03] MEDS: PIPERACILLIN/TAZOBACTAM 3,375 MG in SODIUM CHLORIDE 0.9% 100 ML IV SCH ×3 (06:21→22:03)
[2020-03-03] MEDS: AZITHROMYCIN 250 MG TABLET PO SCH (08:55)
[2020-03-03] MEDS ORDERED: PANTOPRAZOLE 40 MG TABLET PO SCH (09:00)
[2020-03-03] MEDS: SODIUM CHLORIDE 0.9% 1,000 ML IV SCH ×2 (12:41→22:03)
[2020-03-04 05:40] LABS: Basophils # 0.1 10*3/uL (0.0-0.2); Basophils % 0.4 % (0.0-0.8); Eosinophils # 0.2 10*3/uL (0.0-0.87); Eosinophils % 1.6 % (0.00-10.9); Hematocrit 21.9 VOL% (42.0-52.0); Hemoglobin 6.9 GM/DL (14.0-18.0); Immature Granulocytes % 0.9 %; Immature Granulocytes Absolute 0.11 #; Lymphocytes # 1.4 10*3/uL (1.4-4.0); Lymphocytes % 11.8 % (21.2-54.2); Mean Corpuscular HGB Conc 31.5 GM/DL (32-36); Mean Corpuscular Volume 98.6 FL (87-102); Mean Platelet Volume 13.2 FL (9.6-12.0); Monocytes % 8.4 % (1.7-12.7); Neutrophils % 76.9 % (38.7-73.9); Platelet Count 163 T/CUMM (130-400); Red Blood Count 2.22 MC/CUMM (3.8-5.5); Red Cell Distribution Width 16.3 % (9.3-17.3); White Blood Count 11.6 T/CUMM (4-12)
[2020-03-04 06:13] LABS: % Iron Saturation 27.6 % (18-50); Calcium 8.7 MG/DL (8.5-10.1); Ferritin 726.7 ng/ml (26-388); Osmolality,Calculated 282.1 MOS/KG (273-304)
[2020-03-04] MEDS: PIPERACILLIN/TAZOBACTAM 3,375 MG in SODIUM CHLORIDE 0.9% 100 ML IV SCH ×2 (06:16→21:33)
[2020-03-04 06:22] LABS: Folate 17.2 NG/ML (5.4-24.0)
[2020-03-04 06:34] LABS: Hypochromasia 1+
[2020-03-04 06:35] LABS: Macrocytosis 1+; Ovalocytes Slight; Polychromasia Slight
[2020-03-04 06:36] LABS: Anisocytosis 1+; Platelet Estimate Adequate
[2020-03-04] MEDS: AZITHROMYCIN 250 MG TABLET PO SCH (09:03)
[2020-03-04] MEDS: GABAPENTIN 600 MG TABLET PO SCH ×3 (09:06→21:33)
[2020-03-04] MEDS: VANCOMYCIN INJ 1,250 MG in SODIUM CHLORIDE 0.9% 250 ML IV SCH (09:48)
[2020-03-04] MEDS ORDERED: traMADol 50 MG TABLET PO PRN (12:49)
[2020-03-04] MEDS ORDERED: SODIUM CHLORIDE 0.9% 1,000 ML IV PRN (12:53)
[2020-03-04] MEDS: SODIUM CHLORIDE 0.9% 1,000 ML IV SCH (13:26)
[2020-03-04] MEDS: PANTOPRAZOLE 40 MG VIAL IV SCH (21:33)
[2020-03-04 22:40] LABS: Hematocrit 28.4 VOL% (42.0-52.0)
[2020-03-04 22:42] LABS: Hemoglobin 9.2 GM/DL (14.0-18.0)
[2020-03-05] MEDS: PIPERACILLIN/TAZOBACTAM 3,375 MG in SODIUM CHLORIDE 0.9% 100 ML IV SCH ×3 (05:36→20:56)
[2020-03-05] MEDS ORDERED: METHOTREXATE 2.5 MG TABLET PO SCH (09:00)
[2020-03-05] MEDS: predniSONE 5 MG TABLET PO SCH (09:19)
[2020-03-05] MEDS: ASPIRIN EC 81 MG TABLET PO SCH (09:19)
[2020-03-05] MEDS: ASCORBIC ACID 500 MG TABLET PO SCH (09:19)
[2020-03-05] MEDS: METOPROLOL SUCCINATE XL 25 MG TABLET PO SCH (09:19)
[2020-03-05] MEDS: AZITHROMYCIN 250 MG TABLET PO SCH (09:19)
[2020-03-05] MEDS: GABAPENTIN 600 MG TABLET PO SCH ×3 (09:19→20:56)
[2020-03-05] MEDS: PANTOPRAZOLE 40 MG VIAL IV SCH ×2 (09:20→20:56)
[2020-03-05] MEDS: VANCOMYCIN INJ 1,250 MG in SODIUM CHLORIDE 0.9% 250 ML IV SCH (09:23)
[2020-03-06] MEDS: PIPERACILLIN/TAZOBACTAM 3,375 MG in SODIUM CHLORIDE 0.9% 100 ML IV SCH (04:15)
[2020-03-06 05:59] LABS: Calcium 9.2 MG/DL (8.5-10.1); Osmolality,Calculated 287.6 MOS/KG (273-304)
[2020-03-06] MEDS: PANTOPRAZOLE 40 MG VIAL IV SCH ×2 (08:05→20:05)
[2020-03-06] MEDS: AZITHROMYCIN 250 MG TABLET PO SCH (08:05)
[2020-03-06] MEDS: ASCORBIC ACID 500 MG TABLET PO SCH (08:05)
[2020-03-06] MEDS: predniSONE 5 MG TABLET PO SCH (08:05)
[2020-03-06] MEDS: METOPROLOL SUCCINATE XL 25 MG TABLET PO SCH (08:05)
[2020-03-06] MEDS: GABAPENTIN 600 MG TABLET PO SCH ×3 (08:05→20:05)
[2020-03-06] MEDS: ASPIRIN EC 81 MG TABLET PO SCH (08:06)
[2020-03-07 05:50] LABS: Basophils # 0.1 10*3/uL (0.0-0.2); Basophils % 0.8 % (0.0-0.8); Eosinophils # 0.2 10*3/uL (0.0-0.87); Eosinophils % 2.1 % (0.00-10.9); Hematocrit 34.6 VOL% (42.0-52.0); Immature Granulocytes % 0.6 %; Immature Granulocytes Absolute 0.07 #; Lymphocytes # 1.7 10*3/uL (1.4-4.0); Lymphocytes % 15.7 % (21.2-54.2); Mean Corpuscular HGB Conc 32.7 GM/DL (32-36); Mean Corpuscular Volume 97.2 FL (87-102); Mean Platelet Volume 13.4 FL (9.6-12.0); Monocytes % 4.5 % (1.7-12.7); Neutrophils % 76.3 % (38.7-73.9); Platelet Count 172 T/CUMM (130-400); White Blood Count 11.1 T/CUMM (4-12)
[2020-03-07 05:52] LABS: Hemoglobin 11.3 GM/DL (14.0-18.0); Red Blood Count 3.56 MC/CUMM (3.8-5.5)
[2020-03-07 06:01] LABS: Calcium 9.4 MG/DL (8.5-10.1); Osmolality,Calculated 278.3 MOS/KG (273-304)
[2020-03-07] MEDS ORDERED: SODIUM CHLORIDE 0.9% 1,000 ML IV SCH (08:00)
[2020-03-07] MEDS ORDERED: LACTATED RINGERS 1,000 ML IV SCH (08:00)
[2020-03-07] MEDS ORDERED: LIDOCAINE 2% 5 ML VIAL ONE (09:00)
[2020-03-07] MEDS ORDERED: propofoL 200 MG/20 ML VIAL IV ONE (09:00)
[2020-03-07] MEDS: ASPIRIN EC 81 MG TABLET PO SCH (10:04)
[2020-03-07] MEDS: GABAPENTIN 600 MG TABLET PO SCH ×3 (10:05→20:08)
[2020-03-07] MEDS: BISACODYL 5 MG TABLET PO SCH ×2 (10:06→19:13)
[2020-03-07] MEDS: predniSONE 5 MG TABLET PO SCH (10:06)
[2020-03-07] MEDS: METOPROLOL SUCCINATE XL 25 MG TABLET PO SCH (10:06)
[2020-03-07] MEDS: ASCORBIC ACID 500 MG TABLET PO SCH (10:06)
[2020-03-07] MEDS: PANTOPRAZOLE 40 MG VIAL IV SCH (10:17)
[2020-03-07] MEDS ORDERED: POLYETHYLENE GLYCOL 3350/ELECTROLYTES 4,000 ML BOTTLE PO ONE (18:00)
[2020-03-07] MEDS: PANTOPRAZOLE 40 MG TABLET PO SCH (19:13)
[2020-03-07] MEDS ORDERED: MAGNESIUM CITRATE 300 ML BOTTLE PO ONE (21:00)
[2020-03-08] MEDS: BISACODYL 5 MG TABLET PO SCH (04:45)
[2020-03-08 05:34] LABS: Basophils # 0.1 10*3/uL (0.0-0.2); Basophils % 0.8 % (0.0-0.8); Eosinophils # 0.2 10*3/uL (0.0-0.87); Eosinophils % 1.9 % (0.00-10.9); Hematocrit 34.5 VOL% (42.0-52.0); Hemoglobin 11.1 GM/DL (14.0-18.0); Immature Granulocytes % 0.5 %; Immature Granulocytes Absolute 0.06 #; Lymphocytes # 1.4 10*3/uL (1.4-4.0); Lymphocytes % 11.4 % (21.2-54.2); Mean Corpuscular HGB Conc 32.2 GM/DL (32-36); Mean Corpuscular Volume 95.3 FL (87-102); Mean Platelet Volume 12.8 FL (9.6-12.0); Monocytes % 2.5 % (1.7-12.7); Neutrophils % 82.9 % (38.7-73.9); Platelet Count 197 T/CUMM (130-400); Red Blood Count 3.62 MC/CUMM (3.8-5.5); Red Cell Distribution Width 15.4 % (9.3-17.3); White Blood Count 11.8 T/CUMM (4-12)
[2020-03-08] MEDS: PANTOPRAZOLE 40 MG TABLET PO SCH ×2 (06:40→10:00)
[2020-03-08] MEDS ORDERED: LACTATED RINGERS 1,000 ML IV SCH (07:30)
[2020-03-08] MEDS ORDERED: methylPREDNISolone SOD SUC 125 MG/2 ML VIAL ONE (08:00)
[2020-03-08] MEDS ORDERED: LIDOCAINE 2% 5 ML VIAL ONE (08:00)
[2020-03-08] MEDS ORDERED: propofoL 200 MG/20 ML VIAL IV ONE (08:00)
[2020-03-08] MEDS ORDERED: PHENYLEPHRINE 1 MG/10 ML SYRINGE IV ONE (08:00)
[2020-03-08] MEDS: GABAPENTIN 600 MG TABLET PO SCH (09:59)
[2020-03-08] MEDS: ASPIRIN EC 81 MG TABLET PO SCH (09:59)
[2020-03-08] MEDS: METOPROLOL SUCCINATE XL 25 MG TABLET PO SCH (09:59)
[2020-03-08] MEDS: predniSONE 5 MG TABLET PO SCH (09:59)
[2020-03-08] MEDS: ASCORBIC ACID 500 MG TABLET PO SCH (09:59)
[2020-03-08 12:31] VITALS: BP 150/98
== END 2020-03-08 13:05 | disposition home health service (06) | DRG 378 ==
LOC: EDSEX → EDBD → EDUNIT# → N.ED 19:13 → SUATTDRO 21:48 → N.EDINP 21:48 → N.2E 22:56 → N.4E 03-07 10:50
PROVIDERS: ADMIT Internal Medicine; ATTEND Internal Medicine
PROC: COLONHP (2020-03-08 08:05)

== ENCOUNTER 2020-04-14 16:06 | Inpatient (IN) ==
[2020-04-14] MEDS ORDERED: LACTATED RINGERS 500 ML IV ONE (16:38)
[2020-04-14] MEDS ORDERED: LACTATED RINGERS 1,000 ML IV ONE (16:40)
[2020-04-14 17:56] LABS: Eosinophils % 0.4 % (0.00-10.9); Hemoglobin 8.3 GM/DL (14.0-18.0); Immature Granulocytes % 0.8 %; Immature Granulocytes Absolute 0.04 #; Lymphocytes # 0.4 10*3/uL (1.4-4.0); Lymphocytes % 7.5 % (21.2-54.2); Mean Corpuscular HGB Conc 31.9 GM/DL (32-36); Monocytes % 1.9 % (1.7-12.7); Neutrophils % 89.4 % (38.7-73.9); Red Blood Count 2.68 MC/CUMM (3.8-5.5); Red Cell Distribution Width 15.5 % (9.3-17.3); White Blood Count 4.8 T/CUMM (4-12)
[2020-04-14 18:00] LABS: Bacteria,Urine Moderate /HPF (Few); Bilirubin,Urine Negative (Negative); Blood, Urine Small mg/dL (Negative); Glucose,Urine (UA) Negative (Negative); Hyaline Casts,Urine 9 /LPF (0-3); Ketones,Urine Negative (Negative); Mucus,Urine Occasional /LPF (Occasional); Nitrite,Urine Positive (Negative); Protein,Urine 30 MG/DL; RBC,Urine 8 /HPF (0-4); Squamous Epithelial Cell,Urine Occasional /HPF (0-10); Urine Appearance Slightly Hazy (Clear); Urine Color Yellow (Yellow); Urine Urobilinogen < 2.0 EU/DL (0.2-1.0); WBC,Urine 60 /HPF (0-6)
[2020-04-14 18:00] LABS: Platelet Count 36 T/CUMM (130-400)
[2020-04-14 18:32] LABS: Albumin 3.4 G/DL (3.4-5.0); Bilirubin,Total 1.4 MG/DL (0.2-1.0); Calcium 9.5 MG/DL (8.5-10.1); Ferritin 1616.5 ng/ml (26-388); Osmolality,Calculated 297.1 MOS/KG (273-304); Total Protein 7.6 G/DL (6.4-8.3)
[2020-04-14 18:48] LABS: Platelet Estimate Decreased
[2020-04-14] MEDS ORDERED: SODIUM CHLORIDE 0.9% 1,000 ML IV STA (19:05)
[2020-04-14] MEDS ORDERED: cefTRIAXone 1,000 MG in SODIUM CHLORIDE 0.9% 100 ML IV STA (19:14)
[2020-04-14] MEDS ORDERED: DEXTROSE 50% 25 GM/50 ML VIAL IV PRN (20:05)
[2020-04-14] MEDS ORDERED: ONDANSETRON 4 MG/2 ML VIAL IV PRN (20:05)
[2020-04-14] MEDS ORDERED: GLUCAGON 1 MG VIAL IM PRN (20:05)
[2020-04-14] MEDS ORDERED: traMADol 50 MG TABLET PO PRN (20:12)
[2020-04-14] MEDS: AMITRIPTYLINE 100 MG TABLET PO SCH (22:21)
[2020-04-14] MEDS: GABAPENTIN 300 MG CAPSULE PO SCH (22:22)
[2020-04-14] MEDS: SODIUM CHLORIDE 0.9% 1,000 ML IV SCH (22:22)
[2020-04-14] MEDS: INSULIN LISPRO 100 UNIT/ML SUBCUT SCH (22:55)
[2020-04-15 03:48] LABS: Immature Granulocytes % 0.7 %; Immature Granulocytes Absolute 0.04 #
[2020-04-15 03:53] LABS: Albumin 2.8 G/DL (3.4-5.0); Bilirubin,Total 0.7 MG/DL (0.2-1.0); Total Protein 6.3 G/DL (6.4-8.3)
[2020-04-15 04:37] LABS: Basophils % 0.2 % (0.0-0.8); Eosinophils # 0.1 10*3/uL (0.0-0.87); Eosinophils % 1.4 % (0.00-10.9); Hematocrit 22.6 VOL% (42.0-52.0); Hemoglobin 7.4 GM/DL (14.0-18.0); Lymphocytes # 0.9 10*3/uL (1.4-4.0); Lymphocytes % 15.8 % (21.2-54.2); Mean Corpuscular HGB Conc 32.7 GM/DL (32-36); Mean Corpuscular Volume 95.8 FL (87-102); Monocytes % 1.2 % (1.7-12.7); Neutrophils % 80.7 % (38.7-73.9); Red Blood Count 2.36 MC/CUMM (3.8-5.5); Red Cell Distribution Width 15.4 % (9.3-17.3); White Blood Count 5.7 T/CUMM (4-12)
[2020-04-15 04:41] LABS: Platelet Count 31 T/CUMM (130-400)
[2020-04-15 05:10] LABS: Eosinophils 1 % (0-10); Lymphocytes 21 % (20-55); Platelet Estimate Decreased; Segmented Neutrophils 75 % (50-85); Total Cells Counted 100
[2020-04-15 05:11] LABS: Hypochromasia 1+; Microcytosis Slight
[2020-04-15] MEDS ORDERED: SODIUM CHLORIDE 0.9% 1,000 ML IV PRN (07:16)
[2020-04-15] MEDS ORDERED: FUROSEMIDE 20 MG/2 ML VIAL IV ONE ×2 (07:18→17:00)
[2020-04-15] MEDS ORDERED: MAGNESIUM SULF RIDER 2 GM in PREMIX 1 EACH IV ONE (07:19)
[2020-04-15] MEDS: INSULIN LISPRO 100 UNIT/ML SUBCUT SCH ×4 (09:30→20:47)
[2020-04-15] MEDS: predniSONE 5 MG TABLET PO SCH (09:36)
[2020-04-15] MEDS: PANTOPRAZOLE 40 MG TABLET PO SCH (09:36)
[2020-04-15] MEDS: GABAPENTIN 300 MG CAPSULE PO SCH ×3 (09:36→20:46)
[2020-04-15] MEDS: ASCORBIC ACID 500 MG TABLET PO SCH (09:36)
[2020-04-15] MEDS: FOLIC ACID 1 MG TABLET PO SCH (09:36)
[2020-04-15] MEDS: CYANOCOBALAMIN 500 MCG TABLET PO SCH (09:36)
[2020-04-15] MEDS: SODIUM CHLORIDE 0.9% 1,000 ML IV SCH (09:37)
[2020-04-15] MEDS: AMITRIPTYLINE 100 MG TABLET PO SCH (20:46)
[2020-04-15] MEDS: cefTRIAXone 2,000 MG in SYRINGE 1 EACH IV SCH (20:46)
[2020-04-15] MEDS: GABAPENTIN 600 MG TABLET PO SCH (23:07)
[2020-04-16] MEDS: SODIUM CHLORIDE 0.9% 1,000 ML IV SCH (03:05)
[2020-04-16 06:02] LABS: Basophils % 0.1 % (0.0-0.8); Eosinophils % 0.1 % (0.00-10.9); Hematocrit 26.8 VOL% (42.0-52.0); Hemoglobin 9.2 GM/DL (14.0-18.0); Immature Granulocytes % 1.3 %; Immature Granulocytes Absolute 0.11 #; Lymphocytes # 0.8 10*3/uL (1.4-4.0); Lymphocytes % 9.7 % (21.2-54.2); Mean Corpuscular HGB Conc 34.3 GM/DL (32-36); Mean Corpuscular Volume 91.2 FL (87-102); Monocytes % 0.7 % (1.7-12.7); Neutrophils % 88.1 % (38.7-73.9); Red Blood Count 2.94 MC/CUMM (3.8-5.5); Red Cell Distribution Width 14.9 % (9.3-17.3); White Blood Count 8.6 T/CUMM (4-12)
[2020-04-16 06:08] LABS: Platelet Count 25 T/CUMM (130-400)
[2020-04-16 06:26] LABS: Hypochromasia 1+; Microcytosis Slight; Ovalocytes Slight; Platelet Estimate Decreased
[2020-04-16 06:56] LABS: Osmolality,Calculated 292.8 MOS/KG (273-304)
[2020-04-16] MEDS: INSULIN LISPRO 100 UNIT/ML SUBCUT SCH ×4 (08:35→22:09)
[2020-04-16] MEDS: FOLIC ACID 1 MG TABLET PO SCH (09:18)
[2020-04-16] MEDS: GABAPENTIN 300 MG CAPSULE PO SCH ×3 (09:18→20:59)
[2020-04-16] MEDS: ASCORBIC ACID 500 MG TABLET PO SCH (09:18)
[2020-04-16] MEDS: GABAPENTIN 600 MG TABLET PO SCH ×3 (09:18→20:59)
[2020-04-16] MEDS: predniSONE 5 MG TABLET PO SCH (09:19)
[2020-04-16] MEDS: PANTOPRAZOLE 40 MG TABLET PO SCH (09:19)
[2020-04-16] MEDS: CYANOCOBALAMIN 500 MCG TABLET PO SCH (09:19)
[2020-04-16] MEDS ORDERED: SODIUM CHLORIDE 0.9% 1,000 ML IV PRN (10:24)
[2020-04-16] MEDS: cefTRIAXone 2,000 MG in SYRINGE 1 EACH IV SCH (20:58)
[2020-04-16] MEDS: AMITRIPTYLINE 100 MG TABLET PO SCH (20:59)
[2020-04-17 05:19] LABS: Basophils % 0.4 % (0.0-0.8); Eosinophils # 0.1 10*3/uL (0.0-0.87); Hematocrit 28.3 VOL% (42.0-52.0); Hemoglobin 9.5 GM/DL (14.0-18.0); Immature Granulocytes % 1.6 %; Immature Granulocytes Absolute 0.12 #; Lymphocytes # 0.7 10*3/uL (1.4-4.0); Lymphocytes % 9.4 % (21.2-54.2); Mean Corpuscular HGB Conc 33.6 GM/DL (32-36); Mean Corpuscular Volume 91.9 FL (87-102); Mean Platelet Volume 11.4 FL (9.6-12.0); Monocytes % 0.3 % (1.7-12.7); Neutrophils % 87.3 % (38.7-73.9); Red Blood Count 3.08 MC/CUMM (3.8-5.5); Red Cell Distribution Width 14.5 % (9.3-17.3); White Blood Count 7.3 T/CUMM (4-12)
[2020-04-17 05:21] LABS: Platelet Count 49 T/CUMM (130-400)
[2020-04-17 05:31] LABS: Calcium 9.2 MG/DL (8.5-10.1); Osmolality,Calculated 286.1 MOS/KG (273-304)
[2020-04-17 05:43] LABS: Hypochromasia 1+; Lymphocytes 7 % (20-55); Platelet Estimate Decreased; Segmented Neutrophils 93 % (50-85); Total Cells Counted 100
[2020-04-17 05:44] LABS: Microcytosis Slight; Ovalocytes Slight
[2020-04-17] MEDS: INSULIN LISPRO 100 UNIT/ML SUBCUT SCH ×4 (08:25→22:06)
[2020-04-17] MEDS: BICALUTAMIDE 50 MG TABLET PO SCH (09:47)
[2020-04-17] MEDS: predniSONE 5 MG TABLET PO SCH (09:47)
[2020-04-17] MEDS: GABAPENTIN 600 MG TABLET PO SCH ×3 (09:47→21:26)
[2020-04-17] MEDS: ASCORBIC ACID 500 MG TABLET PO SCH (09:47)
[2020-04-17] MEDS: GABAPENTIN 300 MG CAPSULE PO SCH ×3 (09:47→21:26)
[2020-04-17] MEDS: FOLIC ACID 1 MG TABLET PO SCH (09:48)
[2020-04-17] MEDS: METOPROLOL SUCCINATE XL 25 MG TABLET PO SCH (09:48)
[2020-04-17] MEDS: PANTOPRAZOLE 40 MG TABLET PO SCH (09:48)
[2020-04-17] MEDS: CYANOCOBALAMIN 500 MCG TABLET PO SCH (09:48)
[2020-04-17] MEDS: cefTRIAXone 2,000 MG in SYRINGE 1 EACH IV SCH (21:20)
[2020-04-17] MEDS: AMITRIPTYLINE 100 MG TABLET PO SCH (21:26)
[2020-04-18 05:30] LABS: Basophils % 0.4 % (0.0-0.8); Eosinophils # 0.1 10*3/uL (0.0-0.87); Eosinophils % 1.7 % (0.00-10.9); Hematocrit 27.9 VOL% (42.0-52.0); Hemoglobin 9.2 GM/DL (14.0-18.0); Immature Granulocytes % 1.7 %; Immature Granulocytes Absolute 0.09 #; Lymphocytes % 18.7 % (21.2-54.2); Mean Corpuscular Volume 94.3 FL (87-102); Mean Platelet Volume 13.4 FL (9.6-12.0); Monocytes % 0.6 % (1.7-12.7); Neutrophils % 76.9 % (38.7-73.9); Red Blood Count 2.96 MC/CUMM (3.8-5.5); Red Cell Distribution Width 14.2 % (9.3-17.3); White Blood Count 5.3 T/CUMM (4-12)
[2020-04-18 05:31] LABS: Platelet Count 45 T/CUMM (130-400)
[2020-04-18 05:49] LABS: Hypochromasia 1+; Platelet Estimate Decreased
[2020-04-18 05:50] LABS: Microcytosis Slight
[2020-04-18 06:01] LABS: Calcium 9.1 MG/DL (8.5-10.1); Osmolality,Calculated 284.3 MOS/KG (273-304)
[2020-04-18] MEDS: INSULIN LISPRO 100 UNIT/ML SUBCUT SCH ×4 (08:45→22:35)
[2020-04-18] MEDS: ASCORBIC ACID 500 MG TABLET PO SCH (09:38)
[2020-04-18] MEDS: GABAPENTIN 600 MG TABLET PO SCH ×3 (09:38→21:04)
[2020-04-18] MEDS: CYANOCOBALAMIN 500 MCG TABLET PO SCH (09:38)
[2020-04-18] MEDS: FOLIC ACID 1 MG TABLET PO SCH (09:38)
[2020-04-18] MEDS: predniSONE 5 MG TABLET PO SCH (09:38)
[2020-04-18] MEDS: GABAPENTIN 300 MG CAPSULE PO SCH ×3 (09:38→21:04)
[2020-04-18] MEDS: BICALUTAMIDE 50 MG TABLET PO SCH (09:38)
[2020-04-18] MEDS: PANTOPRAZOLE 40 MG TABLET PO SCH (09:38)
[2020-04-18] MEDS: METOPROLOL SUCCINATE XL 25 MG TABLET PO SCH (09:47)
[2020-04-18] MEDS: AMITRIPTYLINE 100 MG TABLET PO SCH (21:04)
[2020-04-18] MEDS: cefTRIAXone 2,000 MG in SYRINGE 1 EACH IV SCH (21:04)
[2020-04-19 05:44] LABS: Basophils % 0.5 % (0.0-0.8); Eosinophils # 0.1 10*3/uL (0.0-0.87); Eosinophils % 1.9 % (0.00-10.9); Hematocrit 29.2 VOL% (42.0-52.0); Hemoglobin 9.6 GM/DL (14.0-18.0); Immature Granulocytes % 6.8 %; Immature Granulocytes Absolute 0.25 #; Lymphocytes % 26.1 % (21.2-54.2); Mean Corpuscular HGB Conc 32.9 GM/DL (32-36); Mean Corpuscular Volume 93.6 FL (87-102); Mean Platelet Volume 11.5 FL (9.6-12.0); Monocytes % 1.4 % (1.7-12.7); Neutrophils % 63.3 % (38.7-73.9); Red Blood Count 3.12 MC/CUMM (3.8-5.5); Red Cell Distribution Width 14.2 % (9.3-17.3); White Blood Count 3.7 T/CUMM (4-12)
[2020-04-19 05:47] LABS: Platelet Count 53 T/CUMM (130-400)
[2020-04-19 05:58] LABS: Calcium 9.5 MG/DL (8.5-10.1); Osmolality,Calculated 286.1 MOS/KG (273-304)
[2020-04-19 06:09] LABS: Eosinophils 1 % (0-10); Hypochromasia 1+; Lymphocytes 27 % (20-55); Microcytosis 1+; Platelet Estimate Decreased; Segmented Neutrophils 70 % (50-85); Total Cells Counted 100
[2020-04-19] MEDS: INSULIN LISPRO 100 UNIT/ML SUBCUT SCH ×4 (08:24→22:24)
[2020-04-19] MEDS: ASCORBIC ACID 500 MG TABLET PO SCH (10:10)
[2020-04-19] MEDS: CYANOCOBALAMIN 500 MCG TABLET PO SCH (10:10)
[2020-04-19] MEDS: GABAPENTIN 300 MG CAPSULE PO SCH ×3 (10:10→21:18)
[2020-04-19] MEDS: GABAPENTIN 600 MG TABLET PO SCH ×3 (10:10→21:18)
[2020-04-19] MEDS: BICALUTAMIDE 50 MG TABLET PO SCH (10:11)
[2020-04-19] MEDS: PANTOPRAZOLE 40 MG TABLET PO SCH (10:11)
[2020-04-19] MEDS: FOLIC ACID 1 MG TABLET PO SCH (10:11)
[2020-04-19] MEDS: METOPROLOL SUCCINATE XL 25 MG TABLET PO SCH (10:11)
[2020-04-19] MEDS: predniSONE 5 MG TABLET PO SCH (10:18)
[2020-04-19 12:47] LABS: Protein,Urine 3+ MG/DL; Urine Appearance Cloudy (Clear); Urine Color Yellow (Yellow); Urine Specific Gravity 1.015 (1.001-1.035)
[2020-04-19 12:48] LABS: Bilirubin,Urine Negative (Negative); Blood, Urine Trace mg/dL (Negative); Glucose,Urine (UA) Negative (Negative); Ketones,Urine Negative (Negative); Nitrite,Urine Negative (Negative); RBC,Urine Occasional /HPF (0-4); WBC,Urine TNTC /HPF (0-6)
[2020-04-19 12:49] LABS: Bacteria,Urine Occasional /HPF (Few); Squamous Epithelial Cell,Urine Few /HPF (0-10)
[2020-04-19] MEDS: NYSTATIN CREAM 15 GM TUBE TOP SCH ×2 (15:13→21:18)
[2020-04-19] MEDS: AMITRIPTYLINE 100 MG TABLET PO SCH (21:18)
[2020-04-19] MEDS: cefTRIAXone 2,000 MG in SYRINGE 1 EACH IV SCH (22:18)
[2020-04-20 05:35] LABS: Basophils % 0.3 % (0.0-0.8); Eosinophils # 0.1 10*3/uL (0.0-0.87); Eosinophils % 2.8 % (0.00-10.9); Hematocrit 25.3 VOL% (42.0-52.0); Hemoglobin 8.5 GM/DL (14.0-18.0); Immature Granulocytes % 0.3 %; Immature Granulocytes Absolute 0.01 #; Lymphocytes % 31.3 % (21.2-54.2); Mean Corpuscular HGB Conc 33.6 GM/DL (32-36); Mean Platelet Volume 12.8 FL (9.6-12.0); Monocytes % 1.9 % (1.7-12.7); Neutrophils % 63.4 % (38.7-73.9); Red Blood Count 2.75 MC/CUMM (3.8-5.5); Red Cell Distribution Width 13.7 % (9.3-17.3); White Blood Count 3.2 T/CUMM (4-12)
[2020-04-20 05:36] LABS: Platelet Count 47 T/CUMM (130-400)
[2020-04-20 06:05] LABS: Calcium 9.5 MG/DL (8.5-10.1); Osmolality,Calculated 281.3 MOS/KG (273-304)
[2020-04-20 06:14] LABS: Lymphocytes 37 % (20-55); Platelet Estimate Decreased; Segmented Neutrophils 62 % (50-85); Total Cells Counted 100
[2020-04-20 06:15] LABS: Anisocytosis 1+; Macrocytosis Slight; Ovalocytes Few; Poikilocytosis Slight
[2020-04-20] MEDS: INSULIN LISPRO 100 UNIT/ML SUBCUT SCH ×4 (08:01→21:52)
[2020-04-20] MEDS: GABAPENTIN 300 MG CAPSULE PO SCH ×3 (08:57→21:52)
[2020-04-20] MEDS: CYANOCOBALAMIN 500 MCG TABLET PO SCH (08:57)
[2020-04-20] MEDS: PANTOPRAZOLE 40 MG TABLET PO SCH (08:57)
[2020-04-20] MEDS: GABAPENTIN 600 MG TABLET PO SCH ×3 (08:57→21:51)
[2020-04-20] MEDS: ASCORBIC ACID 500 MG TABLET PO SCH (08:57)
[2020-04-20] MEDS: BICALUTAMIDE 50 MG TABLET PO SCH (08:57)
[2020-04-20] MEDS: predniSONE 5 MG TABLET PO SCH (08:57)
[2020-04-20] MEDS: FOLIC ACID 1 MG TABLET PO SCH (08:58)
[2020-04-20] MEDS: METOPROLOL SUCCINATE XL 25 MG TABLET PO SCH (09:04)
[2020-04-20] MEDS: cefTAZidime 1,000 MG in SYRINGE 1 EACH IV SCH ×2 (09:06→21:52)
[2020-04-20] MEDS: NYSTATIN CREAM 15 GM TUBE TOP SCH ×2 (09:07→21:53)
[2020-04-20] MEDS: AMITRIPTYLINE 100 MG TABLET PO SCH (21:51)
[2020-04-21] MEDS: INSULIN LISPRO 100 UNIT/ML SUBCUT SCH ×4 (07:35→21:02)
[2020-04-21] MEDS: METOPROLOL SUCCINATE XL 25 MG TABLET PO SCH (08:26)
[2020-04-21] MEDS: ASCORBIC ACID 500 MG TABLET PO SCH (08:26)
[2020-04-21] MEDS: predniSONE 5 MG TABLET PO SCH (08:26)
[2020-04-21] MEDS: BICALUTAMIDE 50 MG TABLET PO SCH (08:27)
[2020-04-21] MEDS: GABAPENTIN 300 MG CAPSULE PO SCH ×3 (08:27→21:02)
[2020-04-21] MEDS: GABAPENTIN 600 MG TABLET PO SCH ×3 (08:27→21:02)
[2020-04-21] MEDS: FOLIC ACID 1 MG TABLET PO SCH (08:27)
[2020-04-21] MEDS: CYANOCOBALAMIN 500 MCG TABLET PO SCH (08:27)
[2020-04-21] MEDS: PANTOPRAZOLE 40 MG TABLET PO SCH (08:27)
[2020-04-21] MEDS: cefTAZidime 1,000 MG in SYRINGE 1 EACH IV SCH ×2 (08:28→21:02)
[2020-04-21] MEDS: NYSTATIN CREAM 15 GM TUBE TOP SCH ×2 (08:30→21:05)
[2020-04-21] MEDS: AMITRIPTYLINE 100 MG TABLET PO SCH (21:02)
[2020-04-22] MEDS: INSULIN LISPRO 100 UNIT/ML SUBCUT SCH ×4 (08:02→20:32)
[2020-04-22] MEDS: cefTAZidime 1,000 MG in SYRINGE 1 EACH IV SCH ×2 (09:26→20:32)
[2020-04-22] MEDS: BICALUTAMIDE 50 MG TABLET PO SCH (09:32)
[2020-04-22] MEDS: PANTOPRAZOLE 40 MG TABLET PO SCH (09:32)
[2020-04-22] MEDS: FOLIC ACID 1 MG TABLET PO SCH (09:32)
[2020-04-22] MEDS: METOPROLOL SUCCINATE XL 25 MG TABLET PO SCH (09:32)
[2020-04-22] MEDS: GABAPENTIN 300 MG CAPSULE PO SCH ×3 (09:32→20:31)
[2020-04-22] MEDS: GABAPENTIN 600 MG TABLET PO SCH ×3 (09:32→20:31)
[2020-04-22] MEDS: CYANOCOBALAMIN 500 MCG TABLET PO SCH (09:32)
[2020-04-22] MEDS: ASCORBIC ACID 500 MG TABLET PO SCH (09:33)
[2020-04-22] MEDS: predniSONE 5 MG TABLET PO SCH (09:33)
[2020-04-22] MEDS: NYSTATIN CREAM 15 GM TUBE TOP SCH ×2 (09:35→20:32)
[2020-04-22] MEDS: AMITRIPTYLINE 100 MG TABLET PO SCH (20:31)
[2020-04-23] MEDS: ACETAMINOPHEN 325 MG TABLET PO PRN (04:23)
[2020-04-23] MEDS: INSULIN LISPRO 100 UNIT/ML SUBCUT SCH ×5 (07:23→20:21)
[2020-04-23] MEDS: cefTAZidime 1,000 MG in SYRINGE 1 EACH IV SCH ×2 (08:40→20:20)
[2020-04-23] MEDS: BICALUTAMIDE 50 MG TABLET PO SCH (08:45)
[2020-04-23] MEDS: GABAPENTIN 600 MG TABLET PO SCH ×3 (08:45→20:21)
[2020-04-23] MEDS: FOLIC ACID 1 MG TABLET PO SCH (08:45)
[2020-04-23] MEDS: ASCORBIC ACID 500 MG TABLET PO SCH (08:45)
[2020-04-23] MEDS: PANTOPRAZOLE 40 MG TABLET PO SCH (08:45)
[2020-04-23] MEDS: GABAPENTIN 300 MG CAPSULE PO SCH ×3 (08:45→20:20)
[2020-04-23] MEDS: CYANOCOBALAMIN 500 MCG TABLET PO SCH (08:45)
[2020-04-23] MEDS: METOPROLOL SUCCINATE XL 25 MG TABLET PO SCH (08:46)
[2020-04-23] MEDS: predniSONE 5 MG TABLET PO SCH (08:51)
[2020-04-23] MEDS: NYSTATIN CREAM 15 GM TUBE TOP SCH ×2 (08:52→20:21)
[2020-04-23] MEDS: AMITRIPTYLINE 100 MG TABLET PO SCH (20:20)
[2020-04-24] MEDS: ACETAMINOPHEN 325 MG TABLET PO PRN ×2 (06:44→14:31)
[2020-04-24] MEDS: INSULIN LISPRO 100 UNIT/ML SUBCUT SCH ×4 (07:52→20:43)
[2020-04-24] MEDS: GABAPENTIN 600 MG TABLET PO SCH ×3 (08:45→20:45)
[2020-04-24] MEDS: ASCORBIC ACID 500 MG TABLET PO SCH (08:45)
[2020-04-24] MEDS: GABAPENTIN 300 MG CAPSULE PO SCH ×3 (08:46→20:50)
[2020-04-24] MEDS: CYANOCOBALAMIN 500 MCG TABLET PO SCH (08:46)
[2020-04-24] MEDS: cefTAZidime 1,000 MG in SYRINGE 1 EACH IV SCH ×2 (08:46→20:44)
[2020-04-24] MEDS: predniSONE 5 MG TABLET PO SCH (08:46)
[2020-04-24] MEDS: FOLIC ACID 1 MG TABLET PO SCH (08:46)
[2020-04-24] MEDS: METOPROLOL SUCCINATE XL 25 MG TABLET PO SCH (08:46)
[2020-04-24] MEDS: PANTOPRAZOLE 40 MG TABLET PO SCH (08:46)
[2020-04-24] MEDS: BICALUTAMIDE 50 MG TABLET PO SCH (08:46)
[2020-04-24] MEDS: NYSTATIN CREAM 15 GM TUBE TOP SCH ×2 (08:54→20:45)
[2020-04-24] MEDS: IBUPROFEN 400 MG TABLET PO PRN (10:08)
[2020-04-24] MEDS ORDERED: TUBERCULIN SKIN TEST 0.1 ML SYRINGE INTRADERM ONE (16:23)
[2020-04-24] MEDS: AMITRIPTYLINE 100 MG TABLET PO SCH (20:44)
[2020-04-25] MEDS: INSULIN LISPRO 100 UNIT/ML SUBCUT SCH ×3 (07:33→16:21)
[2020-04-25] MEDS: BICALUTAMIDE 50 MG TABLET PO SCH (08:42)
[2020-04-25] MEDS: METOPROLOL SUCCINATE XL 25 MG TABLET PO SCH (08:42)
[2020-04-25] MEDS: GABAPENTIN 300 MG CAPSULE PO SCH ×3 (08:42→21:00)
[2020-04-25] MEDS: CYANOCOBALAMIN 500 MCG TABLET PO SCH (08:42)
[2020-04-25] MEDS: PANTOPRAZOLE 40 MG TABLET PO SCH (08:42)
[2020-04-25] MEDS: FOLIC ACID 1 MG TABLET PO SCH (08:42)
[2020-04-25] MEDS: ASCORBIC ACID 500 MG TABLET PO SCH (08:43)
[2020-04-25] MEDS: predniSONE 5 MG TABLET PO SCH (08:43)
[2020-04-25] MEDS: cefTAZidime 1,000 MG in SYRINGE 1 EACH IV SCH ×2 (08:43→21:00)
[2020-04-25] MEDS: GABAPENTIN 600 MG TABLET PO SCH ×3 (08:43→20:59)
[2020-04-25] MEDS: NYSTATIN CREAM 15 GM TUBE TOP SCH ×2 (08:48→21:00)
[2020-04-25] MEDS: AMITRIPTYLINE 100 MG TABLET PO SCH (20:59)
[2020-04-26] MEDS: INSULIN LISPRO 100 UNIT/ML SUBCUT SCH ×5 (01:39→22:38)
[2020-04-26] MEDS: cefTAZidime 1,000 MG in SYRINGE 1 EACH IV SCH ×2 (10:50→22:37)
[2020-04-26] MEDS: ASCORBIC ACID 500 MG TABLET PO SCH (10:55)
[2020-04-26] MEDS: METOPROLOL SUCCINATE XL 25 MG TABLET PO SCH (10:55)
[2020-04-26] MEDS: predniSONE 5 MG TABLET PO SCH (10:55)
[2020-04-26] MEDS: GABAPENTIN 300 MG CAPSULE PO SCH ×3 (10:55→22:38)
[2020-04-26] MEDS: GABAPENTIN 600 MG TABLET PO SCH ×3 (10:56→22:38)
[2020-04-26] MEDS: CYANOCOBALAMIN 500 MCG TABLET PO SCH (10:56)
[2020-04-26] MEDS: PANTOPRAZOLE 40 MG TABLET PO SCH (10:56)
[2020-04-26] MEDS: BICALUTAMIDE 50 MG TABLET PO SCH (10:56)
[2020-04-26] MEDS: FOLIC ACID 1 MG TABLET PO SCH (10:56)
[2020-04-26] MEDS: NYSTATIN CREAM 15 GM TUBE TOP SCH ×2 (10:57→22:38)
[2020-04-26] MEDS: IBUPROFEN 400 MG TABLET PO PRN ×2 (14:49→22:39)
[2020-04-26] MEDS: AMITRIPTYLINE 100 MG TABLET PO SCH (22:37)
[2020-04-26] MEDS: ACETAMINOPHEN 325 MG TABLET PO PRN (22:39)
[2020-04-27] MEDS: INSULIN LISPRO 100 UNIT/ML SUBCUT SCH ×4 (08:47→21:14)
[2020-04-27] MEDS: FOLIC ACID 1 MG TABLET PO SCH (08:58)
[2020-04-27] MEDS: GABAPENTIN 300 MG CAPSULE PO SCH ×3 (08:58→21:12)
[2020-04-27] MEDS: BICALUTAMIDE 50 MG TABLET PO SCH (08:58)
[2020-04-27] MEDS: CYANOCOBALAMIN 500 MCG TABLET PO SCH (08:58)
[2020-04-27] MEDS: IBUPROFEN 400 MG TABLET PO PRN (08:59)
[2020-04-27] MEDS: PANTOPRAZOLE 40 MG TABLET PO SCH (08:59)
[2020-04-27] MEDS: METOPROLOL SUCCINATE XL 25 MG TABLET PO SCH (08:59)
[2020-04-27] MEDS: GABAPENTIN 600 MG TABLET PO SCH ×3 (08:59→21:12)
[2020-04-27] MEDS: ASCORBIC ACID 500 MG TABLET PO SCH (09:00)
[2020-04-27] MEDS: predniSONE 5 MG TABLET PO SCH (09:01)
[2020-04-27] MEDS: NYSTATIN CREAM 15 GM TUBE TOP SCH ×2 (09:03→21:13)
[2020-04-27] MEDS: cefTAZidime 1,000 MG in SYRINGE 1 EACH IV SCH (10:14)
[2020-04-27] MEDS: AMITRIPTYLINE 100 MG TABLET PO SCH (21:12)
[2020-04-27] MEDS: ACETAMINOPHEN 325 MG TABLET PO PRN (21:12)
[2020-04-28 06:13] LABS: Basophils % 0.3 % (0.0-0.8); Eosinophils # 0.1 10*3/uL (0.0-0.87); Hematocrit 27.5 VOL% (42.0-52.0); Hemoglobin 8.8 GM/DL (14.0-18.0); Immature Granulocytes % 1.9 %; Immature Granulocytes Absolute 0.07 #; Lymphocytes # 1.2 10*3/uL (1.4-4.0); Lymphocytes % 32.3 % (21.2-54.2); Mean Corpuscular Volume 95.5 FL (87-102); Mean Platelet Volume 12.6 FL (9.6-12.0); Monocytes % 16.8 % (1.7-12.7); Neutrophils % 45.7 % (38.7-73.9); Platelet Count 365 T/CUMM (130-400); Red Blood Count 2.88 MC/CUMM (3.8-5.5); Red Cell Distribution Width 14.9 % (9.3-17.3); White Blood Count 3.7 T/CUMM (4-12)
[2020-04-28 07:13] LABS: Eosinophils 6 % (0-10); Hypochromasia 1+; Lymphocytes 31 % (20-55); Microcytosis 1+; Platelet Estimate Adequate; Segmented Neutrophils 52 % (50-85); Total Cells Counted 100
[2020-04-28] MEDS: INSULIN LISPRO 100 UNIT/ML SUBCUT SCH ×3 (09:44→16:42)
[2020-04-28] MEDS: GABAPENTIN 600 MG TABLET PO SCH ×3 (09:45→20:27)
[2020-04-28] MEDS: ASCORBIC ACID 500 MG TABLET PO SCH (09:45)
[2020-04-28] MEDS: PANTOPRAZOLE 40 MG TABLET PO SCH (09:45)
[2020-04-28] MEDS: BICALUTAMIDE 50 MG TABLET PO SCH (09:45)
[2020-04-28] MEDS: GABAPENTIN 300 MG CAPSULE PO SCH ×3 (09:45→20:27)
[2020-04-28] MEDS: FOLIC ACID 1 MG TABLET PO SCH (09:46)
[2020-04-28] MEDS: CYANOCOBALAMIN 500 MCG TABLET PO SCH (09:46)
[2020-04-28] MEDS: METOPROLOL SUCCINATE XL 25 MG TABLET PO SCH (09:46)
[2020-04-28] MEDS: predniSONE 5 MG TABLET PO SCH (09:46)
[2020-04-28] MEDS: IBUPROFEN 400 MG TABLET PO PRN (09:48)
[2020-04-28] MEDS: NYSTATIN CREAM 15 GM TUBE TOP SCH ×2 (12:35→20:28)
[2020-04-28] MEDS: ACETAMINOPHEN 325 MG TABLET PO PRN (20:26)
[2020-04-28] MEDS: AMITRIPTYLINE 100 MG TABLET PO SCH (20:27)
[2020-04-29] MEDS: FOLIC ACID 1 MG TABLET PO SCH (09:12)
[2020-04-29] MEDS: GABAPENTIN 600 MG TABLET PO SCH ×3 (09:12→20:24)
[2020-04-29] MEDS: ASCORBIC ACID 500 MG TABLET PO SCH (09:12)
[2020-04-29] MEDS: METOPROLOL SUCCINATE XL 25 MG TABLET PO SCH (09:12)
[2020-04-29] MEDS: BICALUTAMIDE 50 MG TABLET PO SCH (09:12)
[2020-04-29] MEDS: predniSONE 5 MG TABLET PO SCH (09:12)
[2020-04-29] MEDS: GABAPENTIN 300 MG CAPSULE PO SCH ×3 (09:12→20:24)
[2020-04-29] MEDS: PANTOPRAZOLE 40 MG TABLET PO SCH (09:13)
[2020-04-29] MEDS: CYANOCOBALAMIN 500 MCG TABLET PO SCH (09:13)
[2020-04-29] MEDS: NYSTATIN CREAM 15 GM TUBE TOP SCH ×2 (11:28→20:25)
[2020-04-29] MEDS: AMITRIPTYLINE 100 MG TABLET PO SCH (20:24)
[2020-04-30] MEDS: ASCORBIC ACID 500 MG TABLET PO SCH (09:33)
[2020-04-30] MEDS: FOLIC ACID 1 MG TABLET PO SCH (09:33)
[2020-04-30] MEDS: GABAPENTIN 600 MG TABLET PO SCH ×3 (09:33→20:19)
[2020-04-30] MEDS: METOPROLOL SUCCINATE XL 25 MG TABLET PO SCH (09:33)
[2020-04-30] MEDS: predniSONE 5 MG TABLET PO SCH (09:33)
[2020-04-30] MEDS: CYANOCOBALAMIN 500 MCG TABLET PO SCH (09:34)
[2020-04-30] MEDS: DOCUSATE SODIUM 100 MG CAPSULE PO PRN (09:34)
[2020-04-30] MEDS: BICALUTAMIDE 50 MG TABLET PO SCH (09:34)
[2020-04-30] MEDS: PANTOPRAZOLE 40 MG TABLET PO SCH (09:34)
[2020-04-30] MEDS: NYSTATIN CREAM 15 GM TUBE TOP SCH ×2 (09:35→20:19)
[2020-04-30] MEDS: GABAPENTIN 300 MG CAPSULE PO SCH ×3 (09:36→20:19)
[2020-04-30] MEDS: AMITRIPTYLINE 100 MG TABLET PO SCH (20:19)
[2020-05-01] MEDS: ASCORBIC ACID 500 MG TABLET PO SCH (08:55)
[2020-05-01] MEDS: METOPROLOL SUCCINATE XL 25 MG TABLET PO SCH (08:56)
[2020-05-01] MEDS: CYANOCOBALAMIN 500 MCG TABLET PO SCH (08:56)
[2020-05-01] MEDS: DOCUSATE SODIUM 100 MG CAPSULE PO PRN (08:56)
[2020-05-01] MEDS: BICALUTAMIDE 50 MG TABLET PO SCH (08:56)
[2020-05-01] MEDS: PANTOPRAZOLE 40 MG TABLET PO SCH (08:56)
[2020-05-01] MEDS: NYSTATIN CREAM 15 GM TUBE TOP SCH ×2 (08:56→21:35)
[2020-05-01] MEDS: GABAPENTIN 600 MG TABLET PO SCH ×3 (08:56→21:35)
[2020-05-01] MEDS: FOLIC ACID 1 MG TABLET PO SCH (08:56)
[2020-05-01] MEDS: predniSONE 5 MG TABLET PO SCH (08:56)
[2020-05-01] MEDS: GABAPENTIN 300 MG CAPSULE PO SCH ×3 (08:57→21:35)
[2020-05-01] MEDS: ACETAMINOPHEN 325 MG TABLET PO PRN (21:35)
[2020-05-01] MEDS: AMITRIPTYLINE 100 MG TABLET PO SCH (21:35)
[2020-05-02] MEDS: NYSTATIN CREAM 15 GM TUBE TOP SCH (09:58)
[2020-05-02] MEDS: CYANOCOBALAMIN 500 MCG TABLET PO SCH (09:58)
[2020-05-02] MEDS: GABAPENTIN 300 MG CAPSULE PO SCH (09:58)
[2020-05-02] MEDS: ASCORBIC ACID 500 MG TABLET PO SCH (09:58)
[2020-05-02] MEDS: PANTOPRAZOLE 40 MG TABLET PO SCH (09:58)
[2020-05-02] MEDS: FOLIC ACID 1 MG TABLET PO SCH (09:58)
[2020-05-02] MEDS: METOPROLOL SUCCINATE XL 25 MG TABLET PO SCH (09:58)
[2020-05-02] MEDS: BICALUTAMIDE 50 MG TABLET PO SCH (09:58)
[2020-05-02] MEDS: predniSONE 5 MG TABLET PO SCH (09:58)
[2020-05-02] MEDS: GABAPENTIN 600 MG TABLET PO SCH (09:58)
[2020-05-02 12:54] VITALS: BP 111/72
== END 2020-05-02 15:56 | disposition home health service (06) | DRG 698 ==
LOC: EDUNIT# → EDBD → N.ED 16:06 → SUATTDRO 20:05 → N.EDINP 20:05 → N.TELES 21:58 → N.4E 04-17 15:04
PROVIDERS: ADMIT Internal Medicine; ATTEND Internal Medicine

== ENCOUNTER 2020-08-27 12:36 | Inpatient (IN) ==
[2020-08-27] MEDS ORDERED: SODIUM CHLORIDE 0.9% 1,000 ML IV STA ×3 (13:11→14:51)
[2020-08-27 13:19] LABS: Basophils # 0.1 10*3/uL (0.0-0.2); Basophils % 0.3 % (0.0-0.8); Eosinophils % 0.2 % (0.00-10.9); Hematocrit 29.3 VOL% (42.0-52.0); Hemoglobin 9.4 GM/DL (14.0-18.0); Immature Granulocytes % 0.6 %; Immature Granulocytes Absolute 0.13 #; Lymphocytes # 1.7 10*3/uL (1.4-4.0); Lymphocytes % 8.2 % (21.2-54.2); Mean Corpuscular HGB Conc 32.1 GM/DL (32-36); Mean Corpuscular Volume 95.4 FL (87-102); Mean Platelet Volume 12.8 FL (9.6-12.0); Monocytes % 6.1 % (1.7-12.7); Neutrophils % 84.6 % (38.7-73.9); Platelet Count 151 T/CUMM (130-400); Red Blood Count 3.07 MC/CUMM (3.8-5.5); Red Cell Distribution Width 17.6 % (9.3-17.3); White Blood Count 20.6 T/CUMM (4-12)
[2020-08-27 13:27] LABS: INR 1.1
[2020-08-27 13:30] LABS: Albumin 2.4 G/DL (3.4-5.0); Bilirubin,Total 0.8 MG/DL (0.2-1.0); Calcium 8.8 MG/DL (8.5-10.1)
[2020-08-27 13:38] LABS: ABG Base Excess -4.9 MMOL/L (-2.5-2.5); ABG HCO3 20.3 MMOL/L (20-26); ABG Oxygen Saturation 97.9 % (95-100); ABG PH 7.338 (7.35-7.45); ABG PO2 96.6 MM HG (80-95); Allen Test Positive
[2020-08-27 13:44] LABS: Bacteria,Urine Many /HPF (Few); Bilirubin,Urine Negative (Negative); Blood, Urine Moderate mg/dL (Negative); Glucose,Urine (UA) Negative (Negative); Ketones,Urine Negative (Negative); Nitrite,Urine Negative (Negative); Protein,Urine >=500 MG/DL; RBC,Urine 41 /HPF (0-4); Urine Appearance CLOUDY (Clear); Urine Color Yellow (Yellow); Urine Specific Gravity 1.019 (1.001-1.035); Urine Urobilinogen < 2.0 EU/DL (0.2-1.0); WBC,Urine 2559 /HPF (0-6)
[2020-08-27] MEDS ORDERED: cefTRIAXone 1,000 MG in SODIUM CHLORIDE 0.9% 100 ML IV STA (13:52)
[2020-08-27 13:54] LABS: Barbiturates Screen,Urine Negative (Negative); Benzodiazepines Screen,Urine Negative (Negative); Cannabinoid Screen,Urine Negative (Negative); Opiate Screen,Urine Negative (Negative); Phencyclidine Screen,Urine Negative (Negative)
[2020-08-27 14:31] LABS: Band Neutrophils 5 % (0-10); Lymphocytes 8 % (20-55); Platelet Estimate Normal; Segmented Neutrophils 81 % (50-85); Total Cells Counted 100
[2020-08-27] MEDS ORDERED: ALBUTEROL 2.5 MG/3 ML NEB RESP TX PRN (14:47)
[2020-08-27] MEDS ORDERED: ONDANSETRON 4 MG/2 ML VIAL IV PRN (14:47)
[2020-08-27] MEDS ORDERED: ACETAMINOPHEN 325 MG TABLET PO PRN (14:47)
[2020-08-27] MEDS ORDERED: PIPERACILLIN/TAZOBACTAM 3,375 MG VIAL IV ONE (14:56)
[2020-08-27] MEDS ORDERED: SODIUM CHLORIDE 0.9% 100 ML IV ONE (14:56)
[2020-08-27] MEDS: SODIUM CHLORIDE 0.9% 1,000 ML IV SCH ×3 (15:06→23:03)
[2020-08-27] MEDS: PIPERACILLIN/TAZOBACTAM 3,375 MG in SODIUM CHLORIDE 0.9% 100 ML IV SCH ×2 (15:06→23:36)
[2020-08-27] MEDS ORDERED: COSYNTROPIN 0.25 MG VIAL IV ONE (16:06)
[2020-08-27] MEDS ORDERED: INFLUENZA VIRUS VACCINE 0.5 ML SYRINGE IM ONE (17:48)
[2020-08-27] MEDS: HYDROCORTISONE 100 MG VIAL IV SCH (17:50)
[2020-08-27] MEDS ORDERED: SODIUM CHLORIDE 0.9% 500 ML IV ONE (18:08)
[2020-08-27] MEDS ORDERED: NOREPINEPHRINE 8 MG in SODIUM CHLORIDE 0.9% 242 ML IV PRN (18:08)
[2020-08-27] MEDS ORDERED: NOREPINEPHRINE 4 MG/4 ML VIAL IV ONE (18:12)
[2020-08-27] MEDS: ENOXAPARIN 30 MG/0.3 ML SYRINGE SUBCUT SCH (21:45)
[2020-08-28] MEDS: HYDROCORTISONE 100 MG VIAL IV SCH ×3 (01:09→16:52)
[2020-08-28 03:53] LABS: Basophils % 0.1 % (0.0-0.8); Hematocrit 26.3 VOL% (42.0-52.0); Hemoglobin 8.2 GM/DL (14.0-18.0); Immature Granulocytes % 0.8 %; Immature Granulocytes Absolute 0.13 #; Lymphocytes # 0.6 10*3/uL (1.4-4.0); Lymphocytes % 3.6 % (21.2-54.2); Mean Corpuscular HGB Conc 31.2 GM/DL (32-36); Mean Corpuscular Volume 95.6 FL (87-102); Mean Platelet Volume 12.7 FL (9.6-12.0); Monocytes % 1.1 % (1.7-12.7); Neutrophils % 94.4 % (38.7-73.9); Platelet Count 143 T/CUMM (130-400); Red Blood Count 2.75 MC/CUMM (3.8-5.5); Red Cell Distribution Width 17.2 % (9.3-17.3); White Blood Count 16.9 T/CUMM (4-12)
[2020-08-28 04:08] LABS: Albumin 2.1 G/DL (3.4-5.0); Bilirubin,Total 0.6 MG/DL (0.2-1.0); Calcium 8.6 MG/DL (8.5-10.1); Osmolality,Calculated 304.4 MOS/KG (273-304); Total Protein 5.5 G/DL (6.4-8.3)
[2020-08-28 04:29] LABS: Burr Cells Slight; Hypochromasia 1+; Lymphocytes 3 % (20-55); Ovalocytes Slight; Platelet Estimate Adequate; Segmented Neutrophils 97 % (50-85); Total Cells Counted 100
[2020-08-28] MEDS: PIPERACILLIN/TAZOBACTAM 3,375 MG in SODIUM CHLORIDE 0.9% 100 ML IV SCH ×3 (06:14→23:43)
[2020-08-28] MEDS ORDERED: MAGNESIUM SULF RIDER 2 GM in PREMIX 1 EACH IV ONE (07:47)
[2020-08-28] MEDS ORDERED: COSYNTROPIN 0.25 MG VIAL IV ONE (08:00)
[2020-08-28 08:54] LABS: Calcium 8.8 MG/DL (8.5-10.1); Osmolality,Calculated 302.6 MOS/KG (273-304)
[2020-08-28] MEDS: PANTOPRAZOLE 40 MG VIAL IV SCH (09:27)
[2020-08-28] MEDS: SODIUM CHLORIDE 0.9% 1,000 ML IV SCH ×2 (11:13→18:54)
[2020-08-28] MEDS: ENOXAPARIN 30 MG/0.3 ML SYRINGE SUBCUT SCH (21:38)
[2020-08-29] MEDS: HYDROCORTISONE 100 MG VIAL IV SCH ×3 (01:26→16:29)
[2020-08-29] MEDS: SODIUM CHLORIDE 0.9% 1,000 ML IV SCH (03:20)
[2020-08-29 04:57] LABS: Basophils % 0.1 % (0.0-0.8); Hematocrit 25.6 VOL% (42.0-52.0); Hemoglobin 8.2 GM/DL (14.0-18.0); Immature Granulocytes % 0.7 %; Immature Granulocytes Absolute 0.11 #; Lymphocytes # 0.6 10*3/uL (1.4-4.0); Lymphocytes % 3.5 % (21.2-54.2); Mean Corpuscular Volume 95.9 FL (87-102); Mean Platelet Volume 12.8 FL (9.6-12.0); Monocytes % 0.5 % (1.7-12.7); Neutrophils % 95.2 % (38.7-73.9); Platelet Count 137 T/CUMM (130-400); Red Blood Count 2.67 MC/CUMM (3.8-5.5); Red Cell Distribution Width 17.2 % (9.3-17.3); White Blood Count 15.7 T/CUMM (4-12)
[2020-08-29 05:11] LABS: Calcium 8.6 MG/DL (8.5-10.1); Osmolality,Calculated 304.3 MOS/KG (273-304)
[2020-08-29 05:42] LABS: Lymphocytes 2 % (20-55); Platelet Estimate Adequate; Segmented Neutrophils 97 % (50-85); Total Cells Counted 100
[2020-08-29 05:43] LABS: Burr Cells Slight; Hypochromasia 1+; Microcytosis 1+; Ovalocytes Slight
[2020-08-29] MEDS: PIPERACILLIN/TAZOBACTAM 3,375 MG in SODIUM CHLORIDE 0.9% 100 ML IV SCH ×3 (06:25→23:38)
[2020-08-29] MEDS ORDERED: POTASSIUM CHLORIDE RIDER 10 MEQ in PREMIX 1 EACH IV ONE (07:26)
[2020-08-29] MEDS: SODIUM CHLORIDE 0.45% 1,000 ML IV SCH ×2 (07:52→14:55)
[2020-08-29] MEDS: PANTOPRAZOLE 40 MG VIAL IV SCH (09:52)
[2020-08-29] MEDS: ENOXAPARIN 30 MG/0.3 ML SYRINGE SUBCUT SCH (21:35)
[2020-08-30] MEDS: HYDROCORTISONE 100 MG VIAL IV SCH ×3 (01:28→17:30)
[2020-08-30 06:39] LABS: Osmolality,Calculated 303.3 MOS/KG (273-304)
[2020-08-30 06:40] LABS: Basophils % 0.1 % (0.0-0.8); Hematocrit 24.2 VOL% (42.0-52.0); Hemoglobin 7.9 GM/DL (14.0-18.0); Immature Granulocytes % 0.7 %; Immature Granulocytes Absolute 0.09 #; Lymphocytes # 0.4 10*3/uL (1.4-4.0); Mean Corpuscular HGB Conc 32.6 GM/DL (32-36); Mean Corpuscular Volume 92.4 FL (87-102); Mean Platelet Volume 12.9 FL (9.6-12.0); Monocytes % 0.2 % (1.7-12.7); Platelet Count 140 T/CUMM (130-400); Red Blood Count 2.62 MC/CUMM (3.8-5.5); Red Cell Distribution Width 17.1 % (9.3-17.3); White Blood Count 12.4 T/CUMM (4-12)
[2020-08-30] MEDS: PIPERACILLIN/TAZOBACTAM 3,375 MG in SODIUM CHLORIDE 0.9% 100 ML IV SCH (06:49)
[2020-08-30 07:01] LABS: Hypochromasia 2+; Lymphocytes 1 % (20-55); Microcytosis 1+; Ovalocytes Slight; Platelet Estimate Adequate; Segmented Neutrophils 98 % (50-85); Total Cells Counted 100
[2020-08-30] MEDS ORDERED: POTASSIUM CHLORIDE 20 MEQ TABLET PO PRN (08:05)
[2020-08-30] MEDS: POTASSIUM CHLORIDE 20 MEQ TABLET PO SCH ×3 (09:27→17:30)
[2020-08-30] MEDS: DEXTROSE 5% 1,000 ML IV SCH (09:32)
[2020-08-30] MEDS: SODIUM CHLORIDE 0.45% 1,000 ML IV SCH (11:36)
[2020-08-30] MEDS: cefTRIAXone 1,000 MG in SYRINGE 1 EACH IV SCH (13:45)
[2020-08-30] MEDS: ENOXAPARIN 30 MG/0.3 ML SYRINGE SUBCUT SCH (21:13)
[2020-08-31] MEDS: HYDROCORTISONE 100 MG VIAL IV SCH ×2 (00:14→08:04)
[2020-08-31] MEDS: DEXTROSE 5% 1,000 ML IV SCH (05:36)
[2020-08-31 06:00] LABS: Basophils % 0.1 % (0.0-0.8); Hematocrit 21.9 VOL% (42.0-52.0); Hemoglobin 7.3 GM/DL (14.0-18.0); Immature Granulocytes % 0.7 %; Immature Granulocytes Absolute 0.08 #; Lymphocytes # 0.5 10*3/uL (1.4-4.0); Lymphocytes % 4.3 % (21.2-54.2); Mean Corpuscular HGB Conc 33.3 GM/DL (32-36); Mean Corpuscular Volume 91.3 FL (87-102); Mean Platelet Volume 13.5 FL (9.6-12.0); Monocytes % 0.3 % (1.7-12.7); Neutrophils % 94.6 % (38.7-73.9); Platelet Count 113 T/CUMM (130-400); Red Cell Distribution Width 16.5 % (9.3-17.3); White Blood Count 10.9 T/CUMM (4-12)
[2020-08-31 06:09] LABS: Calcium 8.9 MG/DL (8.5-10.1); Osmolality,Calculated 302.3 MOS/KG (273-304)
[2020-08-31 06:48] LABS: Acanthocytes Few; Hypochromasia 1+; Lymphocytes 6 % (20-55); Microcytosis 1+; Segmented Neutrophils 93 % (50-85); Total Cells Counted 100
[2020-08-31 06:49] LABS: Ovalocytes Slight; Platelet Estimate Adequate; Poikilocytosis 1+; Target Cells Slight; Tear Drop Cells Slight
[2020-08-31] MEDS: cefTRIAXone 1,000 MG in SYRINGE 1 EACH IV SCH (08:05)
[2020-08-31 12:03] VITALS: BP 153/73
== END 2020-08-31 12:11 | disposition hospice, home (50) | DRG 698 ==
LOC: EDUNIT# → N.ED 12:36 → N.EDINP 14:47 → SUATTDRO 14:47 → N.ICU 16:04 → N.5E 08-29 14:41
PROVIDERS: ADMIT Internal Medicine; ATTEND Internal Medicine